=== PATIENT | female | born 1940 | race Caucasian/White ===

== ENCOUNTER → 2016-06-18 | Outpatient (REF) | payer OTHER ==
[2016-06-18 15:03] LABS: MEAN CORPUSCULAR HEMOGLOBIN 29.9 pg (27.0-33.0); MEAN CORPUSCULAR HGB CONC 32.2 g/dl (32.0-36.5); MEAN CORPUSCULAR VOLUME 92.9 fl (80.0-96.0); RED CELL DISTRIBUTION WIDTH 13.4 % (11.5-14.5); WHITE BLOOD COUNT 7.4 K/mm3 (4.0-10.0)
[2016-06-18 15:27] LABS: ALBUMIN 3.5 GM/DL (3.2-5.2); ALBUMIN/GLOBULIN RATIO 1.06 (1.00-1.93); ALKALINE PHOSPHATASE 140 U/L (45-117); ALT/SGPT 29 U/L (12-78); ANION GAP 8 MEQ/L (8-16); AST/SGOT 21 U/L (15-37); BILIRUBIN,TOTAL 0.8 MG/DL (0.2-1.0); BLOOD UREA NITROGEN 18 MG/DL (7-18); CALCIUM LEVEL 10.1 MG/DL (8.8-10.2); CARBON DIOXIDE LEVEL 32 MEQ/L (21-32); CHLORIDE LEVEL 101 MEQ/L (98-107); CHOLESTEROL LEVEL 149 MG/DL (<200); GLOMERULAR FILTRATION RATE > 60.0 (>39); GLUCOSE, FASTING 96 MG/DL (83-110); POTASSIUM SERUM 3.7 MEQ/L (3.5-5.1); SODIUM LEVEL 141 MEQ/L (136-145); TOTAL PROTEIN 6.8 GM/DL (6.4-8.2); TRIGLYCERIDES LEVEL 95 MG/DL (<150)
== END ==
LOC: M LABDRAW1 13:07
PROVIDERS: ATTEND Nurse Practitioner Family
DX: I10 Essential (primary) hypertension (principal); E55.9 Vitamin D deficiency, unspecified; E78.00 Pure hypercholesterolemia, unspecified

== ENCOUNTER → 2016-10-03 | Outpatient (REF) | payer OTHER ==
[2016-10-03 15:29] LABS: MEAN CORPUSCULAR HEMOGLOBIN 30.7 pg (27.0-33.0); MEAN CORPUSCULAR HGB CONC 33.6 g/dl (32.0-36.5); MEAN CORPUSCULAR VOLUME 91.4 fl (80.0-96.0); RED CELL DISTRIBUTION WIDTH 14.5 % (11.5-14.5); WHITE BLOOD COUNT 6.1 K/mm3 (4.0-10.0)
[2016-10-03 16:54] LABS: ALBUMIN 3.9 GM/DL (3.2-5.2); ALBUMIN/GLOBULIN RATIO 1.39 (1.00-1.93); ALKALINE PHOSPHATASE 105 U/L (45-117); ALT/SGPT 26 U/L (12-78); ANION GAP 8 MEQ/L (8-16); AST/SGOT 21 U/L (15-37); BILIRUBIN,TOTAL 0.9 MG/DL (0.2-1.0); BLOOD UREA NITROGEN 16 MG/DL (7-18); CALCIUM LEVEL 10.2 MG/DL (8.8-10.2); CARBON DIOXIDE LEVEL 30 MEQ/L (21-32); CHLORIDE LEVEL 103 MEQ/L (98-107); CHOLESTEROL LEVEL 163 MG/DL (<200); GLOMERULAR FILTRATION RATE > 60.0 (>39); GLUCOSE, FASTING 87 MG/DL (83-110); POTASSIUM SERUM 3.8 MEQ/L (3.5-5.1); SODIUM LEVEL 141 MEQ/L (136-145); TOTAL PROTEIN 6.7 GM/DL (6.4-8.2); TRIGLYCERIDES LEVEL 93 MG/DL (<150)
== END ==
LOC: M LABDRAW1 14:52
PROVIDERS: ATTEND Nurse Practitioner Family
DX: E55.9 Vitamin D deficiency, unspecified (principal); I10 Essential (primary) hypertension; E78.00 Pure hypercholesterolemia, unspecified

== ENCOUNTER → 2017-01-10 | Outpatient (REF) | payer OTHER ==
[2017-01-10 18:48] LABS: ALBUMIN 3.8 GM/DL (3.2-5.2); ALBUMIN/GLOBULIN RATIO 1.41 (1.00-1.93); ALKALINE PHOSPHATASE 111 U/L (45-117); ALT/SGPT 30 U/L (12-78); ANION GAP 7 MEQ/L (8-16); AST/SGOT 24 U/L (15-37); BLOOD UREA NITROGEN 20 MG/DL (7-18); CALCIUM LEVEL 10.2 MG/DL (8.8-10.2); CARBON DIOXIDE LEVEL 31 MEQ/L (21-32); CHLORIDE LEVEL 104 MEQ/L (98-107); CHOLESTEROL LEVEL 162 MG/DL (<200); CREATININE FOR GFR 0.81 MG/DL (0.55-1.02); GLOMERULAR FILTRATION RATE > 60.0 (>39); GLUCOSE, FASTING 86 MG/DL (83-110); SODIUM LEVEL 142 MEQ/L (136-145); TOTAL PROTEIN 6.5 GM/DL (6.4-8.2); TRIGLYCERIDES LEVEL 71 MG/DL (<150)
[2017-01-10 19:07] LABS: MEAN CORPUSCULAR HEMOGLOBIN 31.1 pg (27.0-33.0); MEAN CORPUSCULAR HGB CONC 33.6 g/dl (32.0-36.5); MEAN CORPUSCULAR VOLUME 92.5 fl (80.0-96.0); WHITE BLOOD COUNT 4.4 K/mm3 (4.0-10.0)
== END ==
LOC: M LABDRAW1 18:04
PROVIDERS: ATTEND Nurse Practitioner Family
DX: E78.00 Pure hypercholesterolemia, unspecified (principal); I10 Essential (primary) hypertension; E55.9 Vitamin D deficiency, unspecified

== ENCOUNTER → 2017-05-21 | Outpatient (CLI) | payer OTHER | LOC: M SMT 12:05 | DX: J43.1 Panlobular emphysema (principal) | CPT/HCPCS: 71046 ==

== ENCOUNTER → 2017-06-23 | Outpatient (REF) | payer OTHER ==
[2017-06-23 16:05] LABS: HEMATOCRIT 52.7 % (36.0-47.0); HEMOGLOBIN 16.9 g/dl (12.0-16.0); MEAN CORPUSCULAR HEMOGLOBIN 29.4 pg (27.0-33.0); MEAN CORPUSCULAR HGB CONC 32.1 g/dl (32.0-36.5); MEAN CORPUSCULAR VOLUME 91.7 fl (80.0-96.0); PLATELET COUNT, AUTOMATED 280 10^3/uL (150-450); RED BLOOD COUNT 5.75 10^6/uL (4.00-5.40); RED CELL DISTRIBUTION WIDTH 13.7 % (11.5-14.5); WHITE BLOOD COUNT 9.9 10^3/uL (4.0-10.0)
[2017-06-23 16:21] LABS: ALBUMIN/GLOBULIN RATIO 1.38 (1.00-1.93); ALKALINE PHOSPHATASE 116 U/L (45-117); ALT/SGPT 33 U/L (12-78); ANION GAP 8 MEQ/L (8-16); AST/SGOT 23 U/L (7-37); BLOOD UREA NITROGEN 26 MG/DL (7-18); CALCIUM LEVEL 10.2 MG/DL (8.8-10.2); CARBON DIOXIDE LEVEL 31 MEQ/L (21-32); CHLORIDE LEVEL 101 MEQ/L (98-107); CHOLESTEROL LEVEL 159 MG/DL (<200); CHOLESTEROL RISK RATIO 2.741 (<5); CPK CREATINE PHOSPHOKINASE 57 U/L (26-192); CREATININE FOR GFR 0.96 MG/DL (0.55-1.30); GLOMERULAR FILTRATION RATE > 60.0 (>39); GLUCOSE, FASTING 111 MG/DL (70-100); HDL CHOLESTEROL 58 MG/DL (>40); LDL CHOLESTEROL 81.8 MG/DL (<100); NON-HDL-C 101 MG/DL; POTASSIUM SERUM 3.6 MEQ/L (3.5-5.1); SODIUM LEVEL 140 MEQ/L (136-145); TOTAL PROTEIN 6.9 GM/DL (6.4-8.2); TRIGLYCERIDES LEVEL 96 MG/DL (<150)
== END ==
LOC: M LABDRAW1 15:35
DX: I10 Essential (primary) hypertension (principal); E55.9 Vitamin D deficiency, unspecified; E78.5 Hyperlipidemia, unspecified
CPT/HCPCS: 82550

== ENCOUNTER 2017-07-15 16:54 | Inpatient (IN) | payer OTHER ==
[2017-07-15] MEDS: methylPREDNISolone INJ 125 MG/2 ML VIAL (J2930) IV (17:45)
[2017-07-15] MEDS: FUROSEMIDE 40 MG/4 ML VIAL (J1940) IV (17:45)
[2017-07-15] MEDS: IPRATROPIUM 0.5MG/ALBUTEROL 2.5MG INH SOL UD 3ML (DUONEB)(J7620) NEB ×4 (17:45→18:17)
[2017-07-15] MEDS: ASPIRIN 81 MG CHEW TABLET PO (17:45)
[2017-07-15 18:00] LABS: BASO # 0.1 10^3/uL (0.0-0.2); BASO % 0.7 % (0.0-1.0); EOS # 0.1 10^3/uL (0.0-0.50); EOS % 0.7 % (0.0-3.0); HEMOGLOBIN 16.9 g/dl (12.0-16.0); IMMATURE GRANULOCYTE % 0.9 % (0-3.0); LYMPH % 9.8 % (24.0-44.0); MEAN CORPUSCULAR HEMOGLOBIN 29.5 pg (27.0-33.0); MEAN CORPUSCULAR HGB CONC 32.5 g/dl (32.0-36.5); MEAN CORPUSCULAR VOLUME 90.8 fl (80.0-96.0); MONO # 0.8 10^3/uL (0.0-0.8); MONO % 7.2 % (0.0-5.0); NEUTROPHILS # 8.5 10^3/uL (1.8-7.7); NEUTROPHILS % 80.7 % (36.0-66.0); PLATELET COUNT, AUTOMATED 247 10^3/uL (150-450); RED BLOOD COUNT 5.73 10^6/uL (4.00-5.40); RED CELL DISTRIBUTION WIDTH 14.6 % (11.5-14.5); WHITE BLOOD COUNT 10.5 10^3/uL (4.0-10.0)
[2017-07-15 18:07] LABS: ABG BASE EXCESS 2.1 (-2.0-2.0); ABG HCO3 26.3 MEQ/L (22.0-26.0); ABG PARTIAL PRESSURE CO2 39.4 mmHg (35.0-45.0); ABG PARTIAL PRESSURE O2 51.2 mmHg (75.0-100.0); ABG STANDARD HCO3 26.1 MEQ/L (22.0-26.0); ABG TOTAL CO2 27.5 MEQ/L (23.0-31.0); ABG pH (ARTERIAL) 7.442 UNITS (7.350-7.450); ALBUMIN 3.8 GM/DL (3.2-5.2); ALBUMIN/GLOBULIN RATIO 1.15 (1.00-1.93); ALKALINE PHOSPHATASE 121 U/L (45-117); ALT/SGPT 34 U/L (12-78); ANION GAP 9 MEQ/L (8-16); AST/SGOT 34 U/L (7-37); BILIRUBIN,DIRECT 0.3 MG/DL (0.0-0.2); BILIRUBIN,TOTAL 1.5 MG/DL (0.2-1.0); BLOOD UREA NITROGEN 19 MG/DL (7-18); CARBON DIOXIDE LEVEL 30 MEQ/L (21-32); CHLORIDE LEVEL 103 MEQ/L (98-107); CK-MB VALUE MASS 9.2 NG/ML (0.0-3.6); CPK CREATINE PHOSPHOKINASE 183 U/L (26-192); GLOMERULAR FILTRATION RATE > 60.0 (>39); GLUCOSE, FASTING 113 MG/DL (70-100); MB/CK RELATIVE INDEX 5.02 (< OR =4); NT-PRO BNP 3727 PG/ML (<450); POTASSIUM SERUM 3.2 MEQ/L (3.5-5.1); SODIUM LEVEL 142 MEQ/L (136-145); TOTAL PROTEIN 7.1 GM/DL (6.4-8.2); TROPONIN I 0.02 NG/ML (< 0.10)
[2017-07-15 19:14] LABS: INFLUENZA A AMPLIFICATION NEGATIVE (NEGATIVE); INFLUENZA B AMPLIFICATION NEGATIVE (NEGATIVE)
[2017-07-15] MEDS ORDERED: ACETAMINOPHEN TAB 650MG DOSE (2X325MG) PO (20:30)
[2017-07-15] MEDS ORDERED: ALBUTEROL SULFATE 2.5 MG/0.5 ML INH NEB SOLN NEB (20:45)
[2017-07-15] MEDS ORDERED: ALBUTEROL SULFATE 2.5 MG/0.5 ML INH NEB SOLN INH (20:45)
[2017-07-15] MEDS: VALSARTAN 80 MG TAB (DIOVAN) PO (22:03)
[2017-07-15] MEDS: POTASSIUM CHLORIDE 10 MEQ SR TABLET PO (22:04)
[2017-07-15] MEDS: ATORVASTATIN 20 MG TAB PO (22:04)
[2017-07-15] MEDS: HEPARIN SOD (PORCINE) 5000 UNITS/ML VIAL SC (22:04)
[2017-07-15 22:49] LABS: CK-MB VALUE MASS 12.8 NG/ML (0.0-3.6); CPK CREATINE PHOSPHOKINASE 227 U/L (26-192); MB/CK RELATIVE INDEX 5.63 (< OR =4); TROPONIN I 0.03 NG/ML (< 0.10)
[2017-07-16] MEDS: ALPRAZolam 0.25 MG TAB PO (00:15)
[2017-07-16] MEDS: FUROSEMIDE 40 MG/4 ML VIAL (J1940) IV ×4 (00:16→18:30)
[2017-07-16] MEDS: HEPARIN SOD (PORCINE) 5000 UNITS/ML VIAL SC ×3 (06:35→21:17)
[2017-07-16 07:37] LABS: HEMATOCRIT 46.3 % (36.0-47.0); HEMOGLOBIN 15.2 g/dl (12.0-16.0); MEAN CORPUSCULAR HEMOGLOBIN 29.6 pg (27.0-33.0); MEAN CORPUSCULAR HGB CONC 32.8 g/dl (32.0-36.5); MEAN CORPUSCULAR VOLUME 90.3 fl (80.0-96.0); PLATELET COUNT, AUTOMATED 199 10^3/uL (150-450); RED BLOOD COUNT 5.13 10^6/uL (4.00-5.40); RED CELL DISTRIBUTION WIDTH 14.5 % (11.5-14.5); WHITE BLOOD COUNT 4.8 10^3/uL (4.0-10.0)
[2017-07-16 07:53] LABS: ANION GAP 5 MEQ/L (8-16); BLOOD UREA NITROGEN 18 MG/DL (7-18); CALCIUM LEVEL 9.8 MG/DL (8.8-10.2); CARBON DIOXIDE LEVEL 36 MEQ/L (21-32); CHLORIDE LEVEL 102 MEQ/L (98-107); CREATININE FOR GFR 0.99 MG/DL (0.55-1.30); GLOMERULAR FILTRATION RATE 58.1 (>39); GLUCOSE, FASTING 136 MG/DL (70-100); MAGNESIUM LEVEL 1.9 MG/DL (1.8-2.4); SODIUM LEVEL 143 MEQ/L (136-145)
[2017-07-16] MEDS: CitaloPRAM (CeleXA) 20 MG TAB PO (09:15)
[2017-07-16] MEDS: POTASSIUM CHLORIDE 10 MEQ SR TABLET PO (09:15)
[2017-07-16] MEDS: INDAPAMIDE 1.25MG TABLET PO (09:15)
[2017-07-16 14:50] LABS: ABG BASE EXCESS 6.5 (-2.0-2.0); ABG HCO3 30.3 MEQ/L (22.0-26.0); ABG O2 SATURATION 93.5 % (95.0-99.0); ABG PARTIAL PRESSURE CO2 40.4 mmHg (35.0-45.0); ABG PARTIAL PRESSURE O2 65.4 mmHg (75.0-100.0); ABG STANDARD HCO3 30.2 MEQ/L (22.0-26.0); ABG TOTAL CO2 31.5 MEQ/L (23.0-31.0); ABG pH (ARTERIAL) 7.493 UNITS (7.350-7.450)
[2017-07-16] MEDS ORDERED: SLF 3 ML SYR IV (17:00)
[2017-07-16] MEDS: VALSARTAN 80 MG TAB (DIOVAN) PO (20:25)
[2017-07-16] MEDS: ATORVASTATIN 20 MG TAB PO (21:16)
[2017-07-16] MEDS: SLF 3 ML SYR IV (21:17)
[2017-07-17 05:48] LABS: HEMOGLOBIN 14.4 g/dl (12.0-16.0); MEAN CORPUSCULAR HEMOGLOBIN 29.1 pg (27.0-33.0); MEAN CORPUSCULAR VOLUME 90.9 fl (80.0-96.0); PLATELET COUNT, AUTOMATED 202 10^3/uL (150-450); RED BLOOD COUNT 4.95 10^6/uL (4.00-5.40); RED CELL DISTRIBUTION WIDTH 14.8 % (11.5-14.5); WHITE BLOOD COUNT 8.6 10^3/uL (4.0-10.0)
[2017-07-17] MEDS: HEPARIN SOD (PORCINE) 5000 UNITS/ML VIAL SC ×3 (06:02→21:00)
[2017-07-17] MEDS: FUROSEMIDE 40 MG/4 ML VIAL (J1940) IV ×3 (06:02→11:28)
[2017-07-17] MEDS: SLF 3 ML SYR IV ×3 (06:02→21:00)
[2017-07-17 06:05] LABS: ANION GAP 4 MEQ/L (8-16); BLOOD UREA NITROGEN 28 MG/DL (7-18); CALCIUM LEVEL 9.7 MG/DL (8.8-10.2); CARBON DIOXIDE LEVEL 40 MEQ/L (21-32); CHLORIDE LEVEL 100 MEQ/L (98-107); CREATININE FOR GFR 1.16 MG/DL (0.55-1.30); GLOMERULAR FILTRATION RATE 48.4 (>39); GLUCOSE, FASTING 86 MG/DL (70-100); POTASSIUM SERUM 3.3 MEQ/L (3.5-5.1); SODIUM LEVEL 144 MEQ/L (136-145)
[2017-07-17] MEDS: POTASSIUM CHLORIDE 10 MEQ SR TABLET PO (06:51)
[2017-07-17] MEDS: CitaloPRAM (CeleXA) 20 MG TAB PO (08:54)
[2017-07-17] MEDS: INDAPAMIDE 1.25MG TABLET PO (08:54)
[2017-07-17] MEDS: ALPRAZolam 0.25 MG TAB PO (11:28)
[2017-07-17] MEDS: VALSARTAN 80 MG TAB (DIOVAN) PO (20:39)
[2017-07-17] MEDS: [UNRECOGNIZED DRUG - OTHER] PO (20:43)
[2017-07-17] MEDS: ATORVASTATIN 20 MG TAB PO (20:43)
[2017-07-18] MEDS: FUROSEMIDE 40 MG/4 ML VIAL (J1940) IV (01:37)
[2017-07-18 05:01] LABS: HEMATOCRIT 49.8 % (36.0-47.0); HEMOGLOBIN 16.3 g/dl (12.0-16.0); MEAN CORPUSCULAR HEMOGLOBIN 29.7 pg (27.0-33.0); MEAN CORPUSCULAR HGB CONC 32.7 g/dl (32.0-36.5); MEAN CORPUSCULAR VOLUME 90.7 fl (80.0-96.0); PLATELET COUNT, AUTOMATED 213 10^3/uL (150-450); RED BLOOD COUNT 5.49 10^6/uL (4.00-5.40); RED CELL DISTRIBUTION WIDTH 14.6 % (11.5-14.5); WHITE BLOOD COUNT 8.4 10^3/uL (4.0-10.0)
[2017-07-18 05:18] LABS: ANION GAP 5 MEQ/L (8-16); BLOOD UREA NITROGEN 30 MG/DL (7-18); CALCIUM LEVEL 10.2 MG/DL (8.8-10.2); CARBON DIOXIDE LEVEL 39 MEQ/L (21-32); CHLORIDE LEVEL 98 MEQ/L (98-107); CREATININE FOR GFR 1.12 MG/DL (0.55-1.30); GLOMERULAR FILTRATION RATE 50.4 (>39); GLUCOSE, FASTING 110 MG/DL (70-100); MAGNESIUM LEVEL 2.1 MG/DL (1.8-2.4); POTASSIUM SERUM 3.1 MEQ/L (3.5-5.1); SODIUM LEVEL 142 MEQ/L (136-145)
[2017-07-18] MEDS: HEPARIN SOD (PORCINE) 5000 UNITS/ML VIAL SC ×3 (05:54→21:42)
[2017-07-18] MEDS: SLF 3 ML SYR IV ×3 (05:55→21:43)
[2017-07-18] MEDS: POTASSIUM CHLORIDE 10 MEQ SR TABLET PO ×2 (06:51→08:32)
[2017-07-18] MEDS: KCL 10MEQ/100ML SWI *ED/ICU* 10 MEQ in APPROPRIATE DILUENT 1 EA IV (06:53)
[2017-07-18] MEDS: INDAPAMIDE 1.25MG TABLET PO (08:31)
[2017-07-18] MEDS: CitaloPRAM (CeleXA) 20 MG TAB PO (08:31)
[2017-07-18] MEDS: [UNRECOGNIZED DRUG - OTHER] PO ×2 (08:32→21:43)
[2017-07-18] MEDS: FUROSEMIDE 40 MG TAB PO ×2 (09:07→17:17)
[2017-07-18 11:22] LABS: ANION GAP 5 MEQ/L (8-16); BLOOD UREA NITROGEN 31 MG/DL (7-18); CALCIUM LEVEL 9.9 MG/DL (8.8-10.2); CARBON DIOXIDE LEVEL 40 MEQ/L (21-32); CHLORIDE LEVEL 97 MEQ/L (98-107); CREATININE FOR GFR 1.24 MG/DL (0.55-1.30); GLOMERULAR FILTRATION RATE 44.8 (>39); GLUCOSE, FASTING 191 MG/DL (70-100); POTASSIUM SERUM 3.9 MEQ/L (3.5-5.1); SODIUM LEVEL 142 MEQ/L (136-145)
[2017-07-18] MEDS: VALSARTAN 80 MG TAB (DIOVAN) PO (21:00)
[2017-07-18] MEDS: ATORVASTATIN 20 MG TAB PO (21:42)
[2017-07-19 05:49] LABS: HEMATOCRIT 51.6 % (36.0-47.0); HEMOGLOBIN 16.4 g/dl (12.0-16.0); MEAN CORPUSCULAR HEMOGLOBIN 28.9 pg (27.0-33.0); MEAN CORPUSCULAR HGB CONC 31.8 g/dl (32.0-36.5); PLATELET COUNT, AUTOMATED 220 10^3/uL (150-450); RED BLOOD COUNT 5.67 10^6/uL (4.00-5.40); RED CELL DISTRIBUTION WIDTH 14.8 % (11.5-14.5); WHITE BLOOD COUNT 8.1 10^3/uL (4.0-10.0)
[2017-07-19 06:04] LABS: ANION GAP 4 MEQ/L (8-16); BLOOD UREA NITROGEN 34 MG/DL (7-18); CALCIUM LEVEL 9.9 MG/DL (8.8-10.2); CARBON DIOXIDE LEVEL 41 MEQ/L (21-32); CHLORIDE LEVEL 100 MEQ/L (98-107); CREATININE FOR GFR 1.19 MG/DL (0.55-1.30); GLOMERULAR FILTRATION RATE 46.9 (>39); GLUCOSE, FASTING 109 MG/DL (70-100); MAGNESIUM LEVEL 2.2 MG/DL (1.8-2.4); POTASSIUM SERUM 3.9 MEQ/L (3.5-5.1); SODIUM LEVEL 145 MEQ/L (136-145)
[2017-07-19] MEDS: SLF 3 ML SYR IV ×3 (06:25→21:06)
[2017-07-19] MEDS: HEPARIN SOD (PORCINE) 5000 UNITS/ML VIAL SC ×3 (06:25→21:06)
[2017-07-19] MEDS: CitaloPRAM (CeleXA) 20 MG TAB PO (09:25)
[2017-07-19] MEDS: INDAPAMIDE 1.25MG TABLET PO (09:25)
[2017-07-19] MEDS: [UNRECOGNIZED DRUG - OTHER] PO ×2 (09:26→21:06)
[2017-07-19] MEDS: FUROSEMIDE 40 MG TAB PO ×2 (09:26→17:30)
[2017-07-19] MEDS: VALSARTAN 80 MG TAB (DIOVAN) PO (21:02)
[2017-07-19] MEDS: ATORVASTATIN 20 MG TAB PO (21:06)
[2017-07-20] MEDS: HEPARIN SOD (PORCINE) 5000 UNITS/ML VIAL SC ×3 (06:08→20:43)
[2017-07-20] MEDS: SLF 3 ML SYR IV ×3 (06:08→20:43)
[2017-07-20 06:12] LABS: HEMATOCRIT 50.9 % (36.0-47.0); HEMOGLOBIN 16.5 g/dl (12.0-16.0); MEAN CORPUSCULAR HEMOGLOBIN 29.5 pg (27.0-33.0); MEAN CORPUSCULAR HGB CONC 32.4 g/dl (32.0-36.5); MEAN CORPUSCULAR VOLUME 90.9 fl (80.0-96.0); PLATELET COUNT, AUTOMATED 202 10^3/uL (150-450); RED CELL DISTRIBUTION WIDTH 14.7 % (11.5-14.5); WHITE BLOOD COUNT 6.3 10^3/uL (4.0-10.0)
[2017-07-20 06:33] LABS: ANION GAP 4 MEQ/L (8-16); BLOOD UREA NITROGEN 36 MG/DL (7-18); CARBON DIOXIDE LEVEL 41 MEQ/L (21-32); CHLORIDE LEVEL 97 MEQ/L (98-107); CREATININE FOR GFR 1.12 MG/DL (0.55-1.30); GLOMERULAR FILTRATION RATE 50.4 (>39); GLUCOSE, FASTING 110 MG/DL (70-100); MAGNESIUM LEVEL 2.3 MG/DL (1.8-2.4); POTASSIUM SERUM 3.4 MEQ/L (3.5-5.1); SODIUM LEVEL 142 MEQ/L (136-145)
[2017-07-20] MEDS: CitaloPRAM (CeleXA) 20 MG TAB PO (08:59)
[2017-07-20] MEDS: FUROSEMIDE 40 MG TAB PO (08:59)
[2017-07-20] MEDS: POTASSIUM CHLORIDE 10 MEQ SR TABLET PO (09:00)
[2017-07-20] MEDS: INDAPAMIDE 1.25MG TABLET PO (09:00)
[2017-07-20] MEDS: [UNRECOGNIZED DRUG - OTHER] PO ×2 (09:01→20:42)
[2017-07-20] MEDS: VALSARTAN 80 MG TAB (DIOVAN) PO (20:42)
[2017-07-20] MEDS: ATORVASTATIN 20 MG TAB PO (20:43)
[2017-07-21] MEDS: HEPARIN SOD (PORCINE) 5000 UNITS/ML VIAL SC ×2 (05:08→14:00)
[2017-07-21] MEDS: SLF 3 ML SYR IV ×2 (05:09→14:00)
[2017-07-21 05:20] LABS: HEMATOCRIT 49.2 % (36.0-47.0); MEAN CORPUSCULAR HEMOGLOBIN 29.6 pg (27.0-33.0); MEAN CORPUSCULAR HGB CONC 32.5 g/dl (32.0-36.5); MEAN CORPUSCULAR VOLUME 91.1 fl (80.0-96.0); PLATELET COUNT, AUTOMATED 202 10^3/uL (150-450); RED CELL DISTRIBUTION WIDTH 14.7 % (11.5-14.5); WHITE BLOOD COUNT 6.6 10^3/uL (4.0-10.0)
[2017-07-21 05:36] LABS: ANION GAP 2 MEQ/L (8-16); BLOOD UREA NITROGEN 33 MG/DL (7-18); CALCIUM LEVEL 9.7 MG/DL (8.8-10.2); CARBON DIOXIDE LEVEL 41 MEQ/L (21-32); CHLORIDE LEVEL 98 MEQ/L (98-107); CREATININE FOR GFR 1.15 MG/DL (0.55-1.30); GLOMERULAR FILTRATION RATE 48.8 (>39); GLUCOSE, FASTING 100 MG/DL (70-100); MAGNESIUM LEVEL 2.2 MG/DL (1.8-2.4); POTASSIUM SERUM 3.5 MEQ/L (3.5-5.1); SODIUM LEVEL 141 MEQ/L (136-145)
[2017-07-21] MEDS: INDAPAMIDE 1.25MG TABLET PO (08:12)
[2017-07-21] MEDS: CitaloPRAM (CeleXA) 20 MG TAB PO (08:12)
[2017-07-21] MEDS: [UNRECOGNIZED DRUG - OTHER] PO (08:12)
[2017-07-21] MEDS: POTASSIUM CHLORIDE 10 MEQ SR TABLET PO (08:13)
[2017-07-21] MEDS: FUROSEMIDE 40 MG TAB PO (08:14)
== END 2017-07-21 15:30 | disposition home or self-care (01) | DRG 291 ==
LOC: M PCU 07-16 16:00 → M ED 16:54 → M ED INP 20:26
DX: I50.33 Acute on chronic diastolic (congestive) heart failure (principal); J96.21 Acute and chronic respiratory failure with hypoxia; C96.6 Unifocal Langerhans-cell histiocytosis; I27.20 Pulmonary hypertension, unspecified; J43.9 Emphysema, unspecified; E87.6 Hypokalemia; J84.10 Pulmonary fibrosis, unspecified; F41.0 Panic disorder [episodic paroxysmal anxiety]; E78.00 Pure hypercholesterolemia, unspecified; H35.30 Unspecified macular degeneration; Z87.891 Personal history of nicotine dependence; Z99.81 Dependence on supplemental oxygen

== ENCOUNTER → 2017-09-22 | Outpatient (REF) | payer OTHER ==
[2017-09-22 14:07] LABS: HEMOGLOBIN 16.4 g/dl (12.0-15.5); MEAN CORPUSCULAR HEMOGLOBIN 30.1 pg (27.0-33.0); MEAN CORPUSCULAR HGB CONC 33.5 g/dl (32.0-36.5); MEAN CORPUSCULAR VOLUME 90.1 fl (80.0-96.0); PLATELET COUNT, AUTOMATED 215 10^3/uL (150-450); RED BLOOD COUNT 5.44 10^6/uL (4.00-5.40); RED CELL DISTRIBUTION WIDTH 14.5 % (11.5-14.5); WHITE BLOOD COUNT 6.8 10^3/uL (4.0-10.0)
[2017-09-22 14:23] LABS: TOTAL 25(OH) VITAMIN D 35.7 NG/ML (30.0-100.0)
[2017-09-22 14:33] LABS: ALBUMIN/GLOBULIN RATIO 1.43 (1.00-1.93); ALKALINE PHOSPHATASE 104 U/L (45-117); ALT/SGPT 27 U/L (12-78); ANION GAP 8 MEQ/L (8-16); AST/SGOT 30 U/L (7-37); BILIRUBIN,TOTAL 1.5 MG/DL (0.2-1.0); BLOOD UREA NITROGEN 20 MG/DL (7-18); CALCIUM LEVEL 10.2 MG/DL (8.8-10.2); CARBON DIOXIDE LEVEL 33 MEQ/L (21-32); CHLORIDE LEVEL 102 MEQ/L (98-107); CHOLESTEROL LEVEL 148 MG/DL (<200); CHOLESTEROL RISK RATIO 3.148 (<5); CPK CREATINE PHOSPHOKINASE 91 U/L (26-192); CREATININE FOR GFR 1.07 MG/DL (0.55-1.30); GLOMERULAR FILTRATION RATE 53.1 (>39); GLUCOSE, FASTING 115 MG/DL (70-100); HDL CHOLESTEROL 47 MG/DL (>40); LDL CHOLESTEROL 78.8 MG/DL (<100); NON-HDL-C 101 MG/DL; POTASSIUM SERUM 3.3 MEQ/L (3.5-5.1); SODIUM LEVEL 143 MEQ/L (136-145); TOTAL PROTEIN 6.8 GM/DL (6.4-8.2); TRIGLYCERIDES LEVEL 111 MG/DL (<150)
== END ==
LOC: M LABDRAW1 11:45
DX: J44.9 Chronic obstructive pulmonary disease, unspecified (principal); E55.9 Vitamin D deficiency, unspecified; I10 Essential (primary) hypertension
CPT/HCPCS: 82550

== ENCOUNTER 2017-10-08 12:27 | Inpatient (IN) | payer OTHER ==
[2017-10-08] MEDS: NS 1,000 ML IV (12:59)
[2017-10-08] MEDS: ASPIRIN 81 MG CHEW TABLET PO (13:12)
[2017-10-08] MEDS: methylPREDNISolone INJ 125 MG/2 ML VIAL (J2930) IV (13:13)
[2017-10-08] MEDS: FUROSEMIDE 40 MG/4 ML VIAL (J1940) IV (13:13)
[2017-10-08 13:34] LABS: BASO # 0.1 10^3/uL (0.0-0.2); BASO % 0.7 % (0.0-1.0); EOS % 0.5 % (0.0-3.0); HEMATOCRIT 52.7 % (36.0-47.0); HEMOGLOBIN 17.3 g/dl (12.0-15.5); IMMATURE GRANULOCYTE % 0.4 % (0-3.0); LYMPH # 1.4 10^3/uL (1.5-4.5); LYMPH % 16.6 % (24.0-44.0); MEAN CORPUSCULAR HEMOGLOBIN 30.2 pg (27.0-33.0); MEAN CORPUSCULAR HGB CONC 32.8 g/dl (32.0-36.5); MEAN CORPUSCULAR VOLUME 92.1 fl (80.0-96.0); MONO # 0.6 10^3/uL (0.0-0.8); MONO % 6.8 % (0.0-5.0); NEUTROPHILS # 6.3 10^3/uL (1.8-7.7); PLATELET COUNT, AUTOMATED 225 10^3/uL (150-450); RED BLOOD COUNT 5.72 10^6/uL (4.00-5.40); RED CELL DISTRIBUTION WIDTH 15.3 % (11.5-14.5); WHITE BLOOD COUNT 8.4 10^3/uL (4.0-10.0)
[2017-10-08 13:44] LABS: ALBUMIN/GLOBULIN RATIO 1.05 (1.00-1.93); ALKALINE PHOSPHATASE 110 U/L (45-117); ALT/SGPT 29 U/L (12-78); ANION GAP 8 MEQ/L (8-16); AST/SGOT 26 U/L (7-37); BILIRUBIN,DIRECT 0.3 MG/DL (0.0-0.2); BILIRUBIN,TOTAL 1.4 MG/DL (0.2-1.0); BLOOD UREA NITROGEN 25 MG/DL (7-18); CALCIUM LEVEL 10.6 MG/DL (8.8-10.2); CARBON DIOXIDE LEVEL 29 MEQ/L (21-32); CHLORIDE LEVEL 103 MEQ/L (98-107); CK-MB VALUE MASS 6.9 NG/ML (<3.6); CPK CREATINE PHOSPHOKINASE 127 U/L (26-192); GLOMERULAR FILTRATION RATE 42.3 (>39); GLUCOSE, FASTING 122 MG/DL (70-100); MB/CK RELATIVE INDEX 5.43 (< OR =4); POTASSIUM SERUM 4.1 MEQ/L (3.5-5.1); SODIUM LEVEL 140 MEQ/L (136-145); TOTAL PROTEIN 7.8 GM/DL (6.4-8.2); TROPONIN I 0.17 NG/ML (< 0.10)
[2017-10-08 13:47] LABS: LACTIC ACID SEPSIS PROTOCOL 4.1 MMOL/L (0.4-2.0)
[2017-10-08] MEDS: IPRATROPIUM 0.5MG/ALBUTEROL 2.5MG INH SOL UD 3ML (DUONEB)(J7620) NEB ×3 (14:35→19:19)
[2017-10-08 14:54] LABS: ABG BASE EXCESS 2.9 (-2.0-2.0); ABG HCO3 26.1 MEQ/L (22.0-26.0); ABG O2 SATURATION 85.5 % (95.0-99.0); ABG PARTIAL PRESSURE CO2 35.8 mmHg (35.0-45.0); ABG STANDARD HCO3 26.7 MEQ/L (22.0-26.0); ABG TOTAL CO2 27.2 MEQ/L (23.0-31.0)
[2017-10-08 14:58] LABS: ABG PARTIAL PRESSURE O2 48.7 mmHg (75.0-100.0)
[2017-10-08 17:27] LABS: TROPONIN I 0.15 NG/ML (< 0.10)
[2017-10-08] MEDS ORDERED: VALSARTAN 80 MG TAB (DIOVAN) PO (17:30)
[2017-10-08] MEDS ORDERED: IPRATROPIUM 0.5MG/ALBUTEROL 2.5MG INH SOL UD 3ML (DUONEB)(J7620) NEB (17:30)
[2017-10-08] MEDS ORDERED: ACETAMINOPHEN TAB 650MG DOSE (2X325MG) PO (17:30)
[2017-10-08] MEDS ORDERED: ONDANSETRON 4MG/2ML VIAL (J2405) IV (17:30)
[2017-10-08] MEDS ORDERED: NON-FORMULARY COMPOUNDED MEDICATION PO (21:00)
[2017-10-08] MEDS: ATORVASTATIN 20 MG TAB PO (22:17)
[2017-10-08] MEDS: HEPARIN SOD (PORCINE) 5000 UNITS/ML VIAL SC (22:17)
[2017-10-09] MEDS: IPRATROPIUM 0.5MG/ALBUTEROL 2.5MG INH SOL UD 3ML (DUONEB)(J7620) NEB ×4 (00:16→23:17)
[2017-10-09] MEDS: methylPREDNISolone INJ 125 MG/2 ML VIAL (J2930) IV ×2 (01:45→13:23)
[2017-10-09] MEDS: HEPARIN SOD (PORCINE) 5000 UNITS/ML VIAL SC ×3 (06:31→21:31)
[2017-10-09 07:23] LABS: CK-MB VALUE MASS 7.3 NG/ML (<3.6); CPK CREATINE PHOSPHOKINASE 138 U/L (26-192); MB/CK RELATIVE INDEX 5.28 (< OR =4); TROPONIN I 0.14 NG/ML (< 0.10)
[2017-10-09 07:36] LABS: ANION GAP 8 MEQ/L (8-16); BLOOD UREA NITROGEN 26 MG/DL (7-18); CALCIUM LEVEL 9.6 MG/DL (8.8-10.2); CARBON DIOXIDE LEVEL 28 MEQ/L (21-32); CHLORIDE LEVEL 108 MEQ/L (98-107); CREATININE FOR GFR 1.06 MG/DL (0.55-1.30); GLOMERULAR FILTRATION RATE 53.5 (>39); GLUCOSE, FASTING 134 MG/DL (70-100); MAGNESIUM LEVEL 2.2 MG/DL (1.8-2.4); POTASSIUM SERUM 3.6 MEQ/L (3.5-5.1); SODIUM LEVEL 144 MEQ/L (136-145)
[2017-10-09 07:38] LABS: HEMATOCRIT 44.9 % (36.0-47.0); MEAN CORPUSCULAR HEMOGLOBIN 30.5 pg (27.0-33.0); MEAN CORPUSCULAR HGB CONC 33.4 g/dl (32.0-36.5); MEAN CORPUSCULAR VOLUME 91.4 fl (80.0-96.0); PLATELET COUNT, AUTOMATED 184 10^3/uL (150-450); RED BLOOD COUNT 4.91 10^6/uL (4.00-5.40); RED CELL DISTRIBUTION WIDTH 15.3 % (11.5-14.5); WHITE BLOOD COUNT 8.2 10^3/uL (4.0-10.0)
[2017-10-09] MEDS: TIOTROPIUM INHALER/CAPSULE (SPIRIVA) INH (08:00)
[2017-10-09] MEDS: POTASSIUM CHLORIDE 10 MEQ SR TABLET PO (08:19)
[2017-10-09] MEDS: FUROSEMIDE 40 MG TAB PO (08:19)
[2017-10-09] MEDS: ASPIRIN 81 MG ENTERIC TAB PO (08:19)
[2017-10-09] MEDS: CitaloPRAM (CeleXA) 20 MG TAB PO (08:19)
[2017-10-09] MEDS ORDERED: NON-FORMULARY COMPOUNDED MEDICATION INH (09:00)
[2017-10-09] MEDS: ADVAIR HFA 230/21MCG INHALER INH ×2 (09:00→23:17)
[2017-10-09] MEDS: INDAPAMIDE 1.25MG TABLET PO (09:34)
[2017-10-09] MEDS: OCUVITE 1 TAB PO ×2 (09:35→21:30)
[2017-10-09] MEDS: ATORVASTATIN 20 MG TAB PO (21:30)
[2017-10-09] MEDS: ALPRAZolam 0.25 MG TAB PO (21:30)
[2017-10-10] MEDS: methylPREDNISolone INJ 125 MG/2 ML VIAL (J2930) IV ×2 (00:58→12:50)
[2017-10-10] MEDS ORDERED: SLF 3 ML SYR IV (02:00)
[2017-10-10] MEDS: SLF 3 ML SYR IV ×3 (06:10→20:12)
[2017-10-10] MEDS: HEPARIN SOD (PORCINE) 5000 UNITS/ML VIAL SC ×3 (06:11→20:12)
[2017-10-10 06:28] LABS: HEMATOCRIT 43.4 % (36.0-47.0); HEMOGLOBIN 14.4 g/dl (12.0-15.5); MEAN CORPUSCULAR HEMOGLOBIN 30.4 pg (27.0-33.0); MEAN CORPUSCULAR HGB CONC 33.2 g/dl (32.0-36.5); MEAN CORPUSCULAR VOLUME 91.6 fl (80.0-96.0); PLATELET COUNT, AUTOMATED 186 10^3/uL (150-450); RED BLOOD COUNT 4.74 10^6/uL (4.00-5.40); RED CELL DISTRIBUTION WIDTH 15.2 % (11.5-14.5); WHITE BLOOD COUNT 11.4 10^3/uL (4.0-10.0)
[2017-10-10 06:45] LABS: ANION GAP 5 MEQ/L (8-16); BLOOD UREA NITROGEN 33 MG/DL (7-18); C REACTIVE PROTEIN QUANTITATIV < 0.30 MG/DL (0.00-0.30); CALCIUM LEVEL 9.8 MG/DL (8.8-10.2); CARBON DIOXIDE LEVEL 31 MEQ/L (21-32); CHLORIDE LEVEL 106 MEQ/L (98-107); GLOMERULAR FILTRATION RATE 42.3 (>39); GLUCOSE, FASTING 139 MG/DL (70-100); MAGNESIUM LEVEL 2.4 MG/DL (1.8-2.4); POTASSIUM SERUM 4.2 MEQ/L (3.5-5.1); SODIUM LEVEL 142 MEQ/L (136-145)
[2017-10-10] MEDS: IPRATROPIUM 0.5MG/ALBUTEROL 2.5MG INH SOL UD 3ML (DUONEB)(J7620) NEB ×2 (08:00→15:47)
[2017-10-10] MEDS: ADVAIR HFA 230/21MCG INHALER INH ×2 (08:03→20:17)
[2017-10-10] MEDS: TIOTROPIUM INHALER/CAPSULE (SPIRIVA) INH (08:03)
[2017-10-10] MEDS: FUROSEMIDE 40 MG TAB PO (09:00)
[2017-10-10] MEDS: OCUVITE 1 TAB PO ×2 (10:00→20:11)
[2017-10-10] MEDS: INDAPAMIDE 1.25MG TABLET PO (10:00)
[2017-10-10] MEDS: CitaloPRAM (CeleXA) 20 MG TAB PO (10:01)
[2017-10-10] MEDS: VALSARTAN 80 MG TAB (DIOVAN) PO (10:01)
[2017-10-10] MEDS: POTASSIUM CHLORIDE 10 MEQ SR TABLET PO (10:01)
[2017-10-10] MEDS: ASPIRIN 81 MG ENTERIC TAB PO (10:01)
[2017-10-10] MEDS: ATORVASTATIN 20 MG TAB PO (20:11)
[2017-10-11] MEDS: methylPREDNISolone INJ 125 MG/2 ML VIAL (J2930) IV ×2 (00:24→13:51)
[2017-10-11] MEDS: IPRATROPIUM 0.5MG/ALBUTEROL 2.5MG INH SOL UD 3ML (DUONEB)(J7620) NEB ×4 (00:30→23:45)
[2017-10-11] MEDS: HEPARIN SOD (PORCINE) 5000 UNITS/ML VIAL SC ×3 (05:32→21:02)
[2017-10-11] MEDS: SLF 3 ML SYR IV ×3 (05:33→21:02)
[2017-10-11 06:12] LABS: HEMATOCRIT 42.5 % (36.0-47.0); HEMOGLOBIN 14.3 g/dl (12.0-15.5); MEAN CORPUSCULAR HEMOGLOBIN 30.8 pg (27.0-33.0); MEAN CORPUSCULAR HGB CONC 33.6 g/dl (32.0-36.5); MEAN CORPUSCULAR VOLUME 91.6 fl (80.0-96.0); PLATELET COUNT, AUTOMATED 190 10^3/uL (150-450); RED BLOOD COUNT 4.64 10^6/uL (4.00-5.40); RED CELL DISTRIBUTION WIDTH 15.4 % (11.5-14.5); WHITE BLOOD COUNT 9.4 10^3/uL (4.0-10.0)
[2017-10-11 06:27] LABS: ANION GAP 9 MEQ/L (8-16); BLOOD UREA NITROGEN 33 MG/DL (7-18); C REACTIVE PROTEIN QUANTITATIV < 0.30 MG/DL (0.00-0.30); CALCIUM LEVEL 9.5 MG/DL (8.8-10.2); CARBON DIOXIDE LEVEL 28 MEQ/L (21-32); CHLORIDE LEVEL 105 MEQ/L (98-107); CREATININE FOR GFR 1.14 MG/DL (0.55-1.30); GLOMERULAR FILTRATION RATE 49.2 (>39); GLUCOSE, FASTING 141 MG/DL (70-100); MAGNESIUM LEVEL 2.4 MG/DL (1.8-2.4); POTASSIUM SERUM 3.4 MEQ/L (3.5-5.1); SODIUM LEVEL 142 MEQ/L (136-145)
[2017-10-11] MEDS: TIOTROPIUM INHALER/CAPSULE (SPIRIVA) INH (08:00)
[2017-10-11] MEDS ORDERED: ISOVUE-370 76% 100ML VIAL (Q9967) As Ordered (08:11)
[2017-10-11] MEDS: FUROSEMIDE 40 MG TAB PO (08:43)
[2017-10-11] MEDS: POTASSIUM CHLORIDE 10 MEQ SR TABLET PO ×2 (08:43→08:47)
[2017-10-11] MEDS: INDAPAMIDE 1.25MG TABLET PO (08:44)
[2017-10-11] MEDS: OCUVITE 1 TAB PO ×2 (08:44→21:01)
[2017-10-11] MEDS: ASPIRIN 81 MG ENTERIC TAB PO (08:45)
[2017-10-11] MEDS: CitaloPRAM (CeleXA) 20 MG TAB PO (08:45)
[2017-10-11] MEDS: VALSARTAN 80 MG TAB (DIOVAN) PO ×3 (08:45→21:02)
[2017-10-11] MEDS: ADVAIR HFA 230/21MCG INHALER INH ×2 (08:57→21:00)
[2017-10-11] MEDS: ATORVASTATIN 20 MG TAB PO (21:01)
[2017-10-12] MEDS: methylPREDNISolone INJ 125 MG/2 ML VIAL (J2930) IV (00:20)
[2017-10-12] MEDS: HEPARIN SOD (PORCINE) 5000 UNITS/ML VIAL SC ×3 (05:27→21:16)
[2017-10-12] MEDS: SLF 3 ML SYR IV ×3 (05:27→21:16)
[2017-10-12 06:43] LABS: HEMATOCRIT 47.1 % (36.0-47.0); HEMOGLOBIN 15.6 g/dl (12.0-15.5); MEAN CORPUSCULAR HEMOGLOBIN 30.5 pg (27.0-33.0); MEAN CORPUSCULAR HGB CONC 33.1 g/dl (32.0-36.5); MEAN CORPUSCULAR VOLUME 92.2 fl (80.0-96.0); PLATELET COUNT, AUTOMATED 215 10^3/uL (150-450); RED BLOOD COUNT 5.11 10^6/uL (4.00-5.40); RED CELL DISTRIBUTION WIDTH 15.7 % (11.5-14.5); WHITE BLOOD COUNT 8.5 10^3/uL (4.0-10.0)
[2017-10-12 07:02] LABS: ANION GAP 9 MEQ/L (8-16); BLOOD UREA NITROGEN 31 MG/DL (7-18); C REACTIVE PROTEIN QUANTITATIV < 0.30 MG/DL (0.00-0.30); CALCIUM LEVEL 9.7 MG/DL (8.8-10.2); CARBON DIOXIDE LEVEL 26 MEQ/L (21-32); CHLORIDE LEVEL 106 MEQ/L (98-107); CREATININE FOR GFR 1.16 MG/DL (0.55-1.30); GLOMERULAR FILTRATION RATE 48.2 (>39); GLUCOSE, FASTING 144 MG/DL (70-100); MAGNESIUM LEVEL 2.4 MG/DL (1.8-2.4); POTASSIUM SERUM 3.8 MEQ/L (3.5-5.1); SODIUM LEVEL 141 MEQ/L (136-145)
[2017-10-12] MEDS: IPRATROPIUM 0.5MG/ALBUTEROL 2.5MG INH SOL UD 3ML (DUONEB)(J7620) NEB ×2 (08:00→15:39)
[2017-10-12] MEDS: ASPIRIN 81 MG ENTERIC TAB PO (08:24)
[2017-10-12] MEDS: CitaloPRAM (CeleXA) 20 MG TAB PO (08:24)
[2017-10-12] MEDS: FUROSEMIDE 40 MG TAB PO (08:24)
[2017-10-12] MEDS: POTASSIUM CHLORIDE 10 MEQ SR TABLET PO (08:24)
[2017-10-12] MEDS: OCUVITE 1 TAB PO ×2 (08:24→21:15)
[2017-10-12] MEDS: ALPRAZolam 0.25 MG TAB PO (08:25)
[2017-10-12] MEDS: INDAPAMIDE 1.25MG TABLET PO (08:26)
[2017-10-12] MEDS: TIOTROPIUM INHALER/CAPSULE (SPIRIVA) INH (09:16)
[2017-10-12] MEDS: ADVAIR HFA 230/21MCG INHALER INH ×2 (09:16→20:33)
[2017-10-12] MEDS: methylPREDNISolone INJ 40 MG/1 ML VIAL (J2920) IV (13:29)
[2017-10-12] MEDS: VALSARTAN 80 MG TAB (DIOVAN) PO (21:15)
[2017-10-12] MEDS: ATORVASTATIN 20 MG TAB PO (21:16)
[2017-10-13] MEDS: methylPREDNISolone INJ 40 MG/1 ML VIAL (J2920) IV (01:38)
[2017-10-13] MEDS: SLF 3 ML SYR IV ×3 (05:35→20:21)
[2017-10-13] MEDS: HEPARIN SOD (PORCINE) 5000 UNITS/ML VIAL SC ×3 (05:35→20:21)
[2017-10-13 06:23] LABS: HEMATOCRIT 46.6 % (36.0-47.0); HEMOGLOBIN 15.7 g/dl (12.0-15.5); MEAN CORPUSCULAR HEMOGLOBIN 30.8 pg (27.0-33.0); MEAN CORPUSCULAR HGB CONC 33.7 g/dl (32.0-36.5); MEAN CORPUSCULAR VOLUME 91.6 fl (80.0-96.0); PLATELET COUNT, AUTOMATED 195 10^3/uL (150-450); RED BLOOD COUNT 5.09 10^6/uL (4.00-5.40); RED CELL DISTRIBUTION WIDTH 15.5 % (11.5-14.5); WHITE BLOOD COUNT 9.4 10^3/uL (4.0-10.0)
[2017-10-13 06:41] LABS: ANION GAP 6 MEQ/L (8-16); BLOOD UREA NITROGEN 30 MG/DL (7-18); CALCIUM LEVEL 9.4 MG/DL (8.8-10.2); CARBON DIOXIDE LEVEL 30 MEQ/L (21-32); CHLORIDE LEVEL 103 MEQ/L (98-107); CREATININE FOR GFR 1.14 MG/DL (0.55-1.30); GLOMERULAR FILTRATION RATE 49.2 (>39); GLUCOSE, FASTING 132 MG/DL (70-100); MAGNESIUM LEVEL 2.4 MG/DL (1.8-2.4); POTASSIUM SERUM 3.8 MEQ/L (3.5-5.1); SODIUM LEVEL 139 MEQ/L (136-145)
[2017-10-13 06:42] LABS: C REACTIVE PROTEIN QUANTITATIV < 0.30 MG/DL (0.00-0.30)
[2017-10-13] MEDS: ADVAIR HFA 230/21MCG INHALER INH ×2 (07:56→20:17)
[2017-10-13] MEDS: IPRATROPIUM 0.5MG/ALBUTEROL 2.5MG INH SOL UD 3ML (DUONEB)(J7620) NEB ×4 (07:56→23:36)
[2017-10-13] MEDS: TIOTROPIUM INHALER/CAPSULE (SPIRIVA) INH (07:56)
[2017-10-13] MEDS: POTASSIUM CHLORIDE 10 MEQ SR TABLET PO (08:46)
[2017-10-13] MEDS: CitaloPRAM (CeleXA) 20 MG TAB PO (08:46)
[2017-10-13] MEDS: ASPIRIN 81 MG ENTERIC TAB PO (08:46)
[2017-10-13] MEDS: OCUVITE 1 TAB PO ×2 (08:46→20:20)
[2017-10-13] MEDS: INDAPAMIDE 1.25MG TABLET PO (08:47)
[2017-10-13] MEDS: FUROSEMIDE 40 MG TAB PO (08:47)
[2017-10-13] MEDS: predniSONE 20 MG TAB PO (10:38)
[2017-10-13] MEDS: VALSARTAN 80 MG TAB (DIOVAN) PO (20:16)
[2017-10-13] MEDS: ATORVASTATIN 20 MG TAB PO (20:20)
[2017-10-14 05:44] LABS: HEMATOCRIT 47.2 % (36.0-47.0); HEMOGLOBIN 15.8 g/dl (12.0-15.5); MEAN CORPUSCULAR HGB CONC 33.5 g/dl (32.0-36.5); MEAN CORPUSCULAR VOLUME 92.5 fl (80.0-96.0); PLATELET COUNT, AUTOMATED 203 10^3/uL (150-450); RED CELL DISTRIBUTION WIDTH 15.5 % (11.5-14.5); WHITE BLOOD COUNT 9.3 10^3/uL (4.0-10.0)
[2017-10-14] MEDS: HEPARIN SOD (PORCINE) 5000 UNITS/ML VIAL SC ×3 (05:48→21:00)
[2017-10-14] MEDS: SLF 3 ML SYR IV ×3 (05:48→21:00)
[2017-10-14 06:00] LABS: ANION GAP 3 MEQ/L (8-16); BLOOD UREA NITROGEN 34 MG/DL (7-18); C REACTIVE PROTEIN QUANTITATIV < 0.30 MG/DL (0.00-0.30); CALCIUM LEVEL 9.2 MG/DL (8.8-10.2); CARBON DIOXIDE LEVEL 35 MEQ/L (21-32); CHLORIDE LEVEL 102 MEQ/L (98-107); CREATININE FOR GFR 1.11 MG/DL (0.55-1.30); GLOMERULAR FILTRATION RATE 50.7 (>39); GLUCOSE, FASTING 107 MG/DL (70-100); MAGNESIUM LEVEL 2.4 MG/DL (1.8-2.4); POTASSIUM SERUM 4.3 MEQ/L (3.5-5.1); SODIUM LEVEL 140 MEQ/L (136-145)
[2017-10-14] MEDS: TIOTROPIUM INHALER/CAPSULE (SPIRIVA) INH (07:30)
[2017-10-14] MEDS: IPRATROPIUM 0.5MG/ALBUTEROL 2.5MG INH SOL UD 3ML (DUONEB)(J7620) NEB ×2 (07:31→15:11)
[2017-10-14] MEDS: ADVAIR HFA 230/21MCG INHALER INH ×2 (07:31→19:42)
[2017-10-14] MEDS: POTASSIUM CHLORIDE 10 MEQ SR TABLET PO (08:30)
[2017-10-14] MEDS: OCUVITE 1 TAB PO ×2 (08:30→21:00)
[2017-10-14] MEDS: INDAPAMIDE 1.25MG TABLET PO (08:30)
[2017-10-14] MEDS: CitaloPRAM (CeleXA) 20 MG TAB PO (08:31)
[2017-10-14] MEDS: predniSONE 20 MG TAB PO (08:31)
[2017-10-14] MEDS: FUROSEMIDE 40 MG TAB PO (08:31)
[2017-10-14] MEDS: ASPIRIN 81 MG ENTERIC TAB PO (08:31)
[2017-10-14] MEDS: ALPRAZolam 0.25 MG TAB PO (08:31)
[2017-10-14] MEDS: VALSARTAN 80 MG TAB (DIOVAN) PO (20:58)
[2017-10-14] MEDS: ATORVASTATIN 20 MG TAB PO (21:00)
[2017-10-15] MEDS: SLF 3 ML SYR IV (05:29)
[2017-10-15] MEDS: HEPARIN SOD (PORCINE) 5000 UNITS/ML VIAL SC (05:29)
[2017-10-15 06:34] LABS: HEMATOCRIT 46.5 % (36.0-47.0); HEMOGLOBIN 15.3 g/dl (12.0-15.5); MEAN CORPUSCULAR HEMOGLOBIN 30.9 pg (27.0-33.0); MEAN CORPUSCULAR HGB CONC 32.9 g/dl (32.0-36.5); MEAN CORPUSCULAR VOLUME 93.9 fl (80.0-96.0); PLATELET COUNT, AUTOMATED 182 10^3/uL (150-450); RED BLOOD COUNT 4.95 10^6/uL (4.00-5.40); RED CELL DISTRIBUTION WIDTH 15.6 % (11.5-14.5); WHITE BLOOD COUNT 9.4 10^3/uL (4.0-10.0)
[2017-10-15 06:51] LABS: ANION GAP 4 MEQ/L (8-16); BLOOD UREA NITROGEN 38 MG/DL (7-18); C REACTIVE PROTEIN QUANTITATIV < 0.30 MG/DL (0.00-0.30); CALCIUM LEVEL 9.5 MG/DL (8.8-10.2); CARBON DIOXIDE LEVEL 36 MEQ/L (21-32); CHLORIDE LEVEL 101 MEQ/L (98-107); GLOMERULAR FILTRATION RATE 46.4 (>39); GLUCOSE, FASTING 108 MG/DL (70-100); MAGNESIUM LEVEL 2.4 MG/DL (1.8-2.4); POTASSIUM SERUM 4.3 MEQ/L (3.5-5.1); SODIUM LEVEL 141 MEQ/L (136-145)
[2017-10-15] MEDS: IPRATROPIUM 0.5MG/ALBUTEROL 2.5MG INH SOL UD 3ML (DUONEB)(J7620) NEB ×2 (08:00)
[2017-10-15] MEDS: OCUVITE 1 TAB PO (08:30)
[2017-10-15] MEDS: ASPIRIN 81 MG ENTERIC TAB PO (08:30)
[2017-10-15] MEDS: predniSONE 20 MG TAB PO (08:30)
[2017-10-15] MEDS: POTASSIUM CHLORIDE 10 MEQ SR TABLET PO (08:30)
[2017-10-15] MEDS: INDAPAMIDE 1.25MG TABLET PO (08:30)
[2017-10-15] MEDS: TIOTROPIUM INHALER/CAPSULE (SPIRIVA) INH (08:31)
[2017-10-15] MEDS: FUROSEMIDE 40 MG TAB PO (08:31)
[2017-10-15] MEDS: ADVAIR HFA 230/21MCG INHALER INH (08:31)
[2017-10-15] MEDS: CitaloPRAM (CeleXA) 20 MG TAB PO (08:31)
== END 2017-10-15 10:55 | disposition home or self-care (01) | DRG 189 ==
LOC: M PCU 10-10 01:21 → M ED 12:27 → M MSPAV 10-10 15:22 → M ED INP 17:29
DX: J96.21 Acute and chronic respiratory failure with hypoxia (principal); C96.6 Unifocal Langerhans-cell histiocytosis; E87.2 Acidosis; J43.9 Emphysema, unspecified; J84.10 Pulmonary fibrosis, unspecified; H35.30 Unspecified macular degeneration; I10 Essential (primary) hypertension; E78.00 Pure hypercholesterolemia, unspecified; Z98.41 Cataract extraction status, right eye; Z98.42 Cataract extraction status, left eye; Z87.891 Personal history of nicotine dependence; Z79.82 Long term (current) use of aspirin; Z79.899 Other long term (current) drug therapy

== ENCOUNTER 2017-12-09 11:20 | Inpatient (IN) | payer OTHER ==
[2017-12-09 12:18] LABS: BASO # 0.1 10^3/uL (0.0-0.2); BASO % 0.7 % (0.0-1.0); EOS % 0.1 % (0.0-3.0); HEMATOCRIT 55.1 % (36.0-47.0); HEMOGLOBIN 18.3 g/dl (12.0-15.5); IMMATURE GRANULOCYTE % 0.8 % (0-3.0); LYMPH # 1.2 10^3/uL (1.5-4.5); MEAN CORPUSCULAR HEMOGLOBIN 31.8 pg (27.0-33.0); MEAN CORPUSCULAR HGB CONC 33.2 g/dl (32.0-36.5); MEAN CORPUSCULAR VOLUME 95.7 fl (80.0-96.0); MONO % 9.6 % (0.0-5.0); NEUTROPHILS # 8.3 10^3/uL (1.8-7.7); NEUTROPHILS % 77.8 % (36.0-66.0); PLATELET COUNT, AUTOMATED 266 10^3/uL (150-450); RED BLOOD COUNT 5.76 10^6/uL (4.00-5.40); RED CELL DISTRIBUTION WIDTH 15.9 % (11.5-14.5); WHITE BLOOD COUNT 10.6 10^3/uL (4.0-10.0)
[2017-12-09 12:26] LABS: INR 1.19; PROTHROMBIN TIME 15.3 SECONDS (12.1-14.4)
[2017-12-09 12:40] LABS: VENOUS BASE EXCESS 0.7 (-2.0-2.0); VENOUS HCO3 25.5 MEQ/L (23.0-27.0); VENOUS O2 SATURATION 57.3 % (60.0-80.0); VENOUS PARTIAL PRESSURE CO2 41.4 mmHg (38.0-50.0); VENOUS PARTIAL PRESSURE O2 31.2 mmHg (30.0-50.0); VENOUS PH 7.408 UNITS (7.330-7.430); VENOUS STANDARD HCO3 23.8 MEQ/L; VENOUS TOTAL CO2 26.8 MEQ/L (24.0-28.0)
[2017-12-09 12:48] LABS: ALBUMIN 3.6 GM/DL (3.2-5.2); ALBUMIN/GLOBULIN RATIO 1.33 (1.00-1.93); ALKALINE PHOSPHATASE 99 U/L (45-117); ALT/SGPT 61 U/L (12-78); ANION GAP 15 MEQ/L (8-16); AST/SGOT 63 U/L (7-37); BILIRUBIN,DIRECT 0.7 MG/DL (0.0-0.2); BILIRUBIN,TOTAL 2.5 MG/DL (0.2-1.0); BLOOD UREA NITROGEN 32 MG/DL (7-18); CARBON DIOXIDE LEVEL 26 MEQ/L (21-32); CHLORIDE LEVEL 100 MEQ/L (98-107); CPK CREATINE PHOSPHOKINASE 108 U/L (26-192); GLUCOSE, FASTING 130 MG/DL (70-100); POTASSIUM SERUM 4.4 MEQ/L (3.5-5.1); SODIUM LEVEL 141 MEQ/L (136-145); TOTAL PROTEIN 6.3 GM/DL (6.4-8.2); TROPONIN I 0.07 NG/ML (< 0.10)
[2017-12-09 12:54] LABS: CK-MB VALUE MASS 11.1 NG/ML (<3.6); MB/CK RELATIVE INDEX 10.27 (< OR =4); NT-PRO BNP 4918 PG/ML (<450)
[2017-12-09] MEDS: NS 1,000 ML IV (13:00)
[2017-12-09 13:06] LABS: THEOPHYLLINE LEVEL 26.4 UG/ML (10.0-20.0)
[2017-12-09 13:07] LABS: LACTIC ACID SEPSIS PROTOCOL 3.8 MMOL/L (0.4-2.0)
[2017-12-09] MEDS: ONDANSETRON 4MG/2ML VIAL (J2405) IV (13:40)
[2017-12-09] MEDS: METOCLOPRAMIDE INJ 10MG/2ML VIAL (J2765) IV (15:45)
[2017-12-09 16:27] LABS: FREE T4 1.73 NG/DL (0.76-1.46)
[2017-12-09 16:51] LABS: PTH INTACT 152.1 PG/ML (18.5-88.0)
[2017-12-09] MEDS: DIGOXIN INJ 0.5 MG/2 ML AMP (J1160) IV ×2 (16:52→21:17)
[2017-12-09] MEDS ORDERED: APIXABAN 5 MG TAB (ELIQUIS) As Ordered (18:00)
[2017-12-09] MEDS: SODIUM CHLORIDE 0.9% 1000 ML IV (18:07)
[2017-12-09] MEDS: methylPREDNISolone INJ 125 MG/2 ML VIAL (J2930) IV (18:08)
[2017-12-09] MEDS: APIXABAN 2.5 MG TAB (ELIQUIS) PO (18:10)
[2017-12-09 19:51] LABS: CK-MB VALUE MASS 11.8 NG/ML (<3.6); CPK CREATINE PHOSPHOKINASE 108 U/L (26-192); MB/CK RELATIVE INDEX 10.92 (< OR =4); TROPONIN I 0.08 NG/ML (< 0.10)
[2017-12-09] MEDS ORDERED: ONDANSETRON 4MG/2ML VIAL (J2405) IV (20:00)
[2017-12-09 20:29] LABS: LACTIC ACID SEPSIS PROTOCOL 2.7 MMOL/L (0.4-2.0)
[2017-12-09 20:38] LABS: TOTAL 25(OH) VITAMIN D 41.4 NG/ML (30.0-100.0)
[2017-12-09] MEDS: ATORVASTATIN 20 MG TAB PO (21:17)
[2017-12-09] MEDS ORDERED: HEPARIN SOD (PORCINE) 5000 UNITS/ML VIAL SC (22:00)
[2017-12-10] MEDS: DIGOXIN INJ 0.5 MG/2 ML AMP (J1160) IV (00:10)
[2017-12-10 00:44] LABS: CK-MB VALUE MASS 14.1 NG/ML (<3.6); CPK CREATINE PHOSPHOKINASE 135 U/L (26-192); MB/CK RELATIVE INDEX 10.44 (< OR =4); TROPONIN I 0.08 NG/ML (< 0.10)
[2017-12-10] MEDS: methylPREDNISolone INJ 125 MG/2 ML VIAL (J2930) IV (01:44)
[2017-12-10] MEDS: ADVAIR HFA 115/21MCG INHALER INH ×3 (02:16→21:05)
[2017-12-10 05:54] LABS: HEMATOCRIT 49.3 % (36.0-47.0); HEMOGLOBIN 16.4 g/dl (12.0-15.5); MEAN CORPUSCULAR HEMOGLOBIN 31.7 pg (27.0-33.0); MEAN CORPUSCULAR HGB CONC 33.3 g/dl (32.0-36.5); MEAN CORPUSCULAR VOLUME 95.4 fl (80.0-96.0); PLATELET COUNT, AUTOMATED 215 10^3/uL (150-450); RED BLOOD COUNT 5.17 10^6/uL (4.00-5.40); RED CELL DISTRIBUTION WIDTH 14.8 % (11.5-14.5); WHITE BLOOD COUNT 7.3 10^3/uL (4.0-10.0)
[2017-12-10] MEDS ORDERED: LEVOTHYROXINE 12.5MCG PER 1/2 TAB (0.0125MG) PO (06:00)
[2017-12-10 06:22] LABS: ALBUMIN 3.1 GM/DL (3.2-5.2); ALBUMIN/GLOBULIN RATIO 1.11 (1.00-1.93); ALKALINE PHOSPHATASE 115 U/L (45-117); ALT/SGPT 65 U/L (12-78); ANION GAP 10 MEQ/L (8-16); AST/SGOT 55 U/L (7-37); BILIRUBIN,TOTAL 1.7 MG/DL (0.2-1.0); BLOOD UREA NITROGEN 34 MG/DL (7-18); CALCIUM LEVEL 9.7 MG/DL (8.8-10.2); CARBON DIOXIDE LEVEL 25 MEQ/L (21-32); CHLORIDE LEVEL 104 MEQ/L (98-107); CREATININE FOR GFR 1.24 MG/DL (0.55-1.30); GLOMERULAR FILTRATION RATE 44.7 (>39); GLUCOSE, FASTING 147 MG/DL (70-100); MAGNESIUM LEVEL 2.1 MG/DL (1.8-2.4); POTASSIUM SERUM 3.8 MEQ/L (3.5-5.1); SODIUM LEVEL 139 MEQ/L (136-145); TOTAL PROTEIN 5.9 GM/DL (6.4-8.2)
[2017-12-10] MEDS: TIOTROPIUM INHALER/CAPSULE (SPIRIVA) INH (07:48)
[2017-12-10] MEDS: methylPREDNISolone INJ 40 MG/1 ML VIAL (J2920) IV (08:48)
[2017-12-10] MEDS: ASPIRIN 81 MG ENTERIC TAB PO (08:49)
[2017-12-10] MEDS: APIXABAN 2.5 MG TAB (ELIQUIS) PO ×2 (08:49→22:00)
[2017-12-10] MEDS: INDAPAMIDE 1.25MG TABLET PO (08:49)
[2017-12-10] MEDS: CitaloPRAM (CeleXA) 20 MG TAB PO (08:49)
[2017-12-10 09:05] LABS: THEOPHYLLINE LEVEL 22.1 UG/ML (10.0-20.0)
[2017-12-10] MEDS: ALPRAZolam 0.25 MG TAB PO (09:47)
[2017-12-10] MEDS: POTASSIUM CHLORIDE 10 MEQ SR TABLET PO (11:16)
[2017-12-10] MEDS: AMIODARONE 200 MG TAB (PACERONE) PO (15:20)
[2017-12-10] MEDS ORDERED: PROPOFOL 200 MG/20 ML VIAL As Ordered (19:19)
[2017-12-10] MEDS ORDERED: MIDAZOLAM INJ 5 MG/ML VIAL (J2250) As Ordered (19:41)
[2017-12-10] MEDS: ATORVASTATIN 20 MG TAB PO (22:00)
[2017-12-11 05:56] LABS: HEMATOCRIT 49.3 % (36.0-47.0); HEMOGLOBIN 15.8 g/dl (12.0-15.5); MEAN CORPUSCULAR HEMOGLOBIN 31.2 pg (27.0-33.0); MEAN CORPUSCULAR VOLUME 97.4 fl (80.0-96.0); PLATELET COUNT, AUTOMATED 216 10^3/uL (150-450); RED BLOOD COUNT 5.06 10^6/uL (4.00-5.40); RED CELL DISTRIBUTION WIDTH 15.1 % (11.5-14.5); WHITE BLOOD COUNT 16.1 10^3/uL (4.0-10.0)
[2017-12-11 06:16] LABS: ALBUMIN 3.2 GM/DL (3.2-5.2); ALBUMIN/GLOBULIN RATIO 1.23 (1.00-1.93); ALKALINE PHOSPHATASE 154 U/L (45-117); ALT/SGPT 68 U/L (12-78); ANION GAP 9 MEQ/L (8-16); AST/SGOT 55 U/L (7-37); BILIRUBIN,TOTAL 1.4 MG/DL (0.2-1.0); BLOOD UREA NITROGEN 34 MG/DL (7-18); CARBON DIOXIDE LEVEL 26 MEQ/L (21-32); CHLORIDE LEVEL 105 MEQ/L (98-107); CREATININE FOR GFR 1.26 MG/DL (0.55-1.30); GLOMERULAR FILTRATION RATE 43.8 (>39); GLUCOSE, FASTING 124 MG/DL (70-100); POTASSIUM SERUM 3.9 MEQ/L (3.5-5.1); SODIUM LEVEL 140 MEQ/L (136-145); TOTAL PROTEIN 5.8 GM/DL (6.4-8.2)
[2017-12-11] MEDS: ADVAIR HFA 115/21MCG INHALER INH ×2 (08:16→20:01)
[2017-12-11] MEDS: TIOTROPIUM INHALER/CAPSULE (SPIRIVA) INH (08:16)
[2017-12-11] MEDS: CitaloPRAM (CeleXA) 20 MG TAB PO (08:29)
[2017-12-11] MEDS: TORSEMIDE 20 MG TAB PO (08:31)
[2017-12-11] MEDS: APIXABAN 5 MG TAB (ELIQUIS) PO ×2 (08:35→20:38)
[2017-12-11] MEDS: VERAPAMIL 40 MG TAB PO ×3 (08:36→20:38)
[2017-12-11 08:47] LABS: THEOPHYLLINE LEVEL 17.6 UG/ML (10.0-20.0)
[2017-12-11] MEDS: ACETAMINOPHEN TAB 650MG DOSE (2X325MG) PO (09:04)
[2017-12-11] MEDS: CHLORASEPTIC SPRAY MT (10:51)
[2017-12-11] MEDS: ALPRAZolam 0.25 MG TAB PO ×2 (14:28→22:45)
[2017-12-11] MEDS: ATORVASTATIN 20 MG TAB PO (20:38)
[2017-12-12 06:02] LABS: HEMATOCRIT 47.6 % (36.0-47.0); HEMOGLOBIN 15.3 g/dl (12.0-15.5); MEAN CORPUSCULAR HEMOGLOBIN 31.7 pg (27.0-33.0); MEAN CORPUSCULAR HGB CONC 32.1 g/dl (32.0-36.5); MEAN CORPUSCULAR VOLUME 98.8 fl (80.0-96.0); PLATELET COUNT, AUTOMATED 198 10^3/uL (150-450); RED BLOOD COUNT 4.82 10^6/uL (4.00-5.40); RED CELL DISTRIBUTION WIDTH 15.1 % (11.5-14.5); WHITE BLOOD COUNT 11.8 10^3/uL (4.0-10.0)
[2017-12-12 06:24] LABS: ALBUMIN 2.9 GM/DL (3.2-5.2); ALBUMIN/GLOBULIN RATIO 1.12 (1.00-1.93); ALKALINE PHOSPHATASE 159 U/L (45-117); ALT/SGPT 82 U/L (12-78); ANION GAP 8 MEQ/L (8-16); AST/SGOT 57 U/L (7-37); BILIRUBIN,TOTAL 0.9 MG/DL (0.2-1.0); BLOOD UREA NITROGEN 42 MG/DL (7-18); CALCIUM LEVEL 9.6 MG/DL (8.8-10.2); CARBON DIOXIDE LEVEL 32 MEQ/L (21-32); CHLORIDE LEVEL 101 MEQ/L (98-107); CREATININE FOR GFR 1.47 MG/DL (0.55-1.30); GLOMERULAR FILTRATION RATE 36.7 (>39); GLUCOSE, FASTING 113 MG/DL (70-100); POTASSIUM SERUM 3.1 MEQ/L (3.5-5.1); SODIUM LEVEL 141 MEQ/L (136-145); TOTAL PROTEIN 5.5 GM/DL (6.4-8.2)
[2017-12-12] MEDS: ADVAIR HFA 115/21MCG INHALER INH ×2 (07:30→20:35)
[2017-12-12] MEDS: TIOTROPIUM INHALER/CAPSULE (SPIRIVA) INH (07:30)
[2017-12-12] MEDS: CitaloPRAM (CeleXA) 20 MG TAB PO (09:02)
[2017-12-12] MEDS: POTASSIUM CHLORIDE 10 MEQ SR TABLET PO (09:02)
[2017-12-12] MEDS: APIXABAN 5 MG TAB (ELIQUIS) PO ×2 (09:02→20:48)
[2017-12-12] MEDS: VERAPAMIL 40 MG TAB PO ×3 (09:03→20:48)
[2017-12-12] MEDS: MAALOX 30 ML SUSP *UDC PO (12:10)
[2017-12-12] MEDS: ATORVASTATIN 20 MG TAB PO (20:47)
[2017-12-12] MEDS: ALPRAZolam 0.25 MG TAB PO (20:48)
[2017-12-13 03:56] LABS: HEMATOCRIT 47.2 % (36.0-47.0); HEMOGLOBIN 15.1 g/dl (12.0-15.5); MEAN CORPUSCULAR HEMOGLOBIN 31.2 pg (27.0-33.0); MEAN CORPUSCULAR VOLUME 97.5 fl (80.0-96.0); PLATELET COUNT, AUTOMATED 187 10^3/uL (150-450); RED BLOOD COUNT 4.84 10^6/uL (4.00-5.40); WHITE BLOOD COUNT 10.8 10^3/uL (4.0-10.0)
[2017-12-13 04:20] LABS: ALBUMIN 2.8 GM/DL (3.2-5.2); ALBUMIN/GLOBULIN RATIO 1.04 (1.00-1.93); ALKALINE PHOSPHATASE 132 U/L (45-117); ALT/SGPT 78 U/L (12-78); ANION GAP 6 MEQ/L (8-16); AST/SGOT 49 U/L (7-37); BILIRUBIN,TOTAL 1.3 MG/DL (0.2-1.0); BLOOD UREA NITROGEN 32 MG/DL (7-18); CALCIUM LEVEL 9.6 MG/DL (8.8-10.2); CARBON DIOXIDE LEVEL 34 MEQ/L (21-32); CHLORIDE LEVEL 102 MEQ/L (98-107); CREATININE FOR GFR 1.05 MG/DL (0.55-1.30); GLOMERULAR FILTRATION RATE 54.1 (>39); GLUCOSE, FASTING 115 MG/DL (70-100); POTASSIUM SERUM 4.1 MEQ/L (3.5-5.1); SODIUM LEVEL 142 MEQ/L (136-145); TOTAL PROTEIN 5.5 GM/DL (6.4-8.2)
[2017-12-13] MEDS: TIOTROPIUM INHALER/CAPSULE (SPIRIVA) INH (07:16)
[2017-12-13] MEDS: ADVAIR HFA 115/21MCG INHALER INH ×2 (07:16→19:43)
[2017-12-13] MEDS: VERAPAMIL 40 MG TAB PO ×4 (08:40→21:00)
[2017-12-13] MEDS: TORSEMIDE 20 MG TAB PO (08:41)
[2017-12-13] MEDS: APIXABAN 5 MG TAB (ELIQUIS) PO (08:41)
[2017-12-13] MEDS: CitaloPRAM (CeleXA) 20 MG TAB PO (08:41)
[2017-12-13 15:57] LABS: HEMATOCRIT 47.2 % (36.0-47.0); HEMOGLOBIN 15.6 g/dl (12.0-15.5); MEAN CORPUSCULAR HGB CONC 33.1 g/dl (32.0-36.5); MEAN CORPUSCULAR VOLUME 96.9 fl (80.0-96.0); PLATELET COUNT, AUTOMATED 185 10^3/uL (150-450); RED BLOOD COUNT 4.87 10^6/uL (4.00-5.40); WHITE BLOOD COUNT 12.5 10^3/uL (4.0-10.0)
[2017-12-13] MEDS: ACETAMINOPHEN TAB 650MG DOSE (2X325MG) PO (18:59)
[2017-12-13 21:20] LABS: HEMATOCRIT 46.2 % (36.0-47.0); HEMOGLOBIN 15.2 g/dl (12.0-15.5); MEAN CORPUSCULAR HEMOGLOBIN 31.7 pg (27.0-33.0); MEAN CORPUSCULAR HGB CONC 32.9 g/dl (32.0-36.5); MEAN CORPUSCULAR VOLUME 96.3 fl (80.0-96.0); PLATELET COUNT, AUTOMATED 175 10^3/uL (150-450); RED CELL DISTRIBUTION WIDTH 14.9 % (11.5-14.5); WHITE BLOOD COUNT 12.3 10^3/uL (4.0-10.0)
[2017-12-13] MEDS: ALPRAZolam 0.25 MG TAB PO (21:50)
[2017-12-13] MEDS: ATORVASTATIN 20 MG TAB PO (21:50)
[2017-12-14 04:06] LABS: HEMOGLOBIN 15.1 g/dl (12.0-15.5); MEAN CORPUSCULAR HEMOGLOBIN 31.8 pg (27.0-33.0); MEAN CORPUSCULAR HGB CONC 33.6 g/dl (32.0-36.5); MEAN CORPUSCULAR VOLUME 94.7 fl (80.0-96.0); PLATELET COUNT, AUTOMATED 172 10^3/uL (150-450); RED BLOOD COUNT 4.75 10^6/uL (4.00-5.40); RED CELL DISTRIBUTION WIDTH 14.8 % (11.5-14.5); WHITE BLOOD COUNT 11.2 10^3/uL (4.0-10.0)
[2017-12-14 04:23] LABS: ALBUMIN 2.6 GM/DL (3.2-5.2); ALBUMIN/GLOBULIN RATIO 0.96 (1.00-1.93); ALKALINE PHOSPHATASE 120 U/L (45-117); ALT/SGPT 65 U/L (12-78); ANION GAP 7 MEQ/L (8-16); AST/SGOT 34 U/L (7-37); BILIRUBIN,TOTAL 1.9 MG/DL (0.2-1.0); BLOOD UREA NITROGEN 29 MG/DL (7-18); CALCIUM LEVEL 9.3 MG/DL (8.8-10.2); CARBON DIOXIDE LEVEL 33 MEQ/L (21-32); CHLORIDE LEVEL 101 MEQ/L (98-107); CREATININE FOR GFR 0.97 MG/DL (0.55-1.30); GLOMERULAR FILTRATION RATE 59.3 (>39); GLUCOSE, FASTING 96 MG/DL (70-100); POTASSIUM SERUM 3.5 MEQ/L (3.5-5.1); SODIUM LEVEL 141 MEQ/L (136-145); TOTAL PROTEIN 5.3 GM/DL (6.4-8.2)
[2017-12-14] MEDS: ADVAIR HFA 115/21MCG INHALER INH ×2 (07:35→19:07)
[2017-12-14] MEDS: TIOTROPIUM INHALER/CAPSULE (SPIRIVA) INH (07:35)
[2017-12-14 08:35] LABS: HEMATOCRIT 47.9 % (36.0-47.0); HEMOGLOBIN 15.6 g/dl (12.0-15.5); MEAN CORPUSCULAR HEMOGLOBIN 31.6 pg (27.0-33.0); MEAN CORPUSCULAR HGB CONC 32.6 g/dl (32.0-36.5); MEAN CORPUSCULAR VOLUME 97.2 fl (80.0-96.0); PLATELET COUNT, AUTOMATED 181 10^3/uL (150-450); RED BLOOD COUNT 4.93 10^6/uL (4.00-5.40); RED CELL DISTRIBUTION WIDTH 15.1 % (11.5-14.5); WHITE BLOOD COUNT 11.9 10^3/uL (4.0-10.0)
[2017-12-14] MEDS: CitaloPRAM (CeleXA) 20 MG TAB PO (08:58)
[2017-12-14] MEDS: VERAPAMIL 40 MG TAB PO ×4 (08:58→20:45)
[2017-12-14] MEDS: TORSEMIDE 20 MG TAB PO (08:58)
[2017-12-14] MEDS: BISACODYL 10 MG SUPP PR (11:28)
[2017-12-14 14:06] LABS: AMORPHOUS SEDIMENT SMALL (NEGATIVE); APPEARANCE, URINE CLEAR (CLEAR); BACTERIA, URINE AUTO NEGATIVE (NEGATIVE); BILIRUBIN, URINE AUTO NEGATIVE (NEGATIVE); BLOOD, URINE BLOOD NEGATIVE (NEGATIVE); COLOR, URINE STRAW (YELLOW); GLUCOSE, URINE (UA) AUTO NEGATIVE (NEGATIVE); KETONE, URINE AUTO NEGATIVE (NEGATIVE); LEUKOCYTE ESTERASE, URINE AUTO NEGATIVE (NEGATIVE); MUCUS, URINE SMALL (NEGATIVE); NITRITE, URINE AUTO NEGATIVE (NEGATIVE); PROTEIN, URINE AUTO NEGATIVE (NEGATIVE); RBC, URINE AUTO 0 /HPF (0-3); SPECIFIC GRAVITY URINE AUTO 1.005 (1.002-1.035); SQUAMOUS EPITHELIAL CELL UR AU 0 /HPF (0-6); UROBILINOGEN, URINE AUTO 0.2 mg/dL (0.0-2.0); WBC, URINE AUTO 2 /HPF (0-3)
[2017-12-14 15:39] LABS: HEMATOCRIT 47.6 % (36.0-47.0); HEMOGLOBIN 15.7 g/dl (12.0-15.5); MEAN CORPUSCULAR HEMOGLOBIN 31.3 pg (27.0-33.0); PLATELET COUNT, AUTOMATED 177 10^3/uL (150-450); RED BLOOD COUNT 5.01 10^6/uL (4.00-5.40); RED CELL DISTRIBUTION WIDTH 14.9 % (11.5-14.5); WHITE BLOOD COUNT 12.3 10^3/uL (4.0-10.0)
[2017-12-14] MEDS: LEVALBUTEROL 1.25 MG/0.5 ML CONCENTRATE NEB NEB ×2 (16:14→19:08)
[2017-12-14] MEDS: ATORVASTATIN 20 MG TAB PO (20:45)
[2017-12-14 21:37] LABS: HEMATOCRIT 45.5 % (36.0-47.0); MEAN CORPUSCULAR HEMOGLOBIN 31.4 pg (27.0-33.0); MEAN CORPUSCULAR VOLUME 95.4 fl (80.0-96.0); PLATELET COUNT, AUTOMATED 173 10^3/uL (150-450); RED BLOOD COUNT 4.77 10^6/uL (4.00-5.40); RED CELL DISTRIBUTION WIDTH 14.8 % (11.5-14.5); WHITE BLOOD COUNT 10.9 10^3/uL (4.0-10.0)
[2017-12-15 03:22] LABS: HEMATOCRIT 44.7 % (36.0-47.0); MEAN CORPUSCULAR HEMOGLOBIN 32.1 pg (27.0-33.0); MEAN CORPUSCULAR HGB CONC 33.6 g/dl (32.0-36.5); MEAN CORPUSCULAR VOLUME 95.5 fl (80.0-96.0); PLATELET COUNT, AUTOMATED 167 10^3/uL (150-450); RED BLOOD COUNT 4.68 10^6/uL (4.00-5.40); WHITE BLOOD COUNT 10.7 10^3/uL (4.0-10.0)
[2017-12-15 03:40] LABS: ALBUMIN 2.6 GM/DL (3.2-5.2); ALKALINE PHOSPHATASE 107 U/L (45-117); ALT/SGPT 52 U/L (12-78); ANION GAP 6 MEQ/L (8-16); AST/SGOT 26 U/L (7-37); BILIRUBIN,TOTAL 2.4 MG/DL (0.2-1.0); BLOOD UREA NITROGEN 26 MG/DL (7-18); CALCIUM LEVEL 9.3 MG/DL (8.8-10.2); CARBON DIOXIDE LEVEL 35 MEQ/L (21-32); CHLORIDE LEVEL 99 MEQ/L (98-107); CREATININE FOR GFR 0.89 MG/DL (0.55-1.30); GLOMERULAR FILTRATION RATE > 60.0 (>39); GLUCOSE, FASTING 97 MG/DL (70-100); SODIUM LEVEL 140 MEQ/L (136-145); TOTAL PROTEIN 5.2 GM/DL (6.4-8.2)
[2017-12-15] MEDS: TIOTROPIUM INHALER/CAPSULE (SPIRIVA) INH (07:25)
[2017-12-15] MEDS: ADVAIR HFA 115/21MCG INHALER INH ×2 (07:25→20:29)
[2017-12-15] MEDS ORDERED: KCL 10MEQ/100ML SWI (KRUN) 10 MEQ in APPROPRIATE DILUENT 1 EA IV (09:00)
[2017-12-15] MEDS: TORSEMIDE 20 MG TAB PO (09:25)
[2017-12-15] MEDS: CitaloPRAM (CeleXA) 20 MG TAB PO (09:25)
[2017-12-15] MEDS: DIGOXIN INJ 0.5 MG/2 ML AMP (J1160) IV ×3 (09:26→17:00)
[2017-12-15] MEDS: POTASSIUM CHLORIDE 10% LIQ 20 MEQ/15 ML UDC PO (09:27)
[2017-12-15] MEDS: VERAPAMIL 40 MG TAB PO ×3 (09:37→20:15)
[2017-12-15 10:32] LABS: VITAMIN D 1,25 DIHYDROXY 45.7 pg/mL (19.9-79.3)
[2017-12-15 10:32] LABS: T3 REVERSE 71.7 ng/dL (9.2-24.1)
[2017-12-15] MEDS ORDERED: FUROSEMIDE 100 MG/10 ML VIAL (J1940) IV (11:30)
[2017-12-15] MEDS: SLF 3 ML SYR IV ×2 (14:46→21:00)
[2017-12-15 15:22] LABS: ANION GAP 7 MEQ/L (8-16); BLOOD UREA NITROGEN 28 MG/DL (7-18); CALCIUM LEVEL 9.8 MG/DL (8.8-10.2); CARBON DIOXIDE LEVEL 32 MEQ/L (21-32); CHLORIDE LEVEL 99 MEQ/L (98-107); CREATININE FOR GFR 1.15 MG/DL (0.55-1.30); GLOMERULAR FILTRATION RATE 48.7 (>39); GLUCOSE, FASTING 163 MG/DL (70-100); MAGNESIUM LEVEL 2.1 MG/DL (1.8-2.4); SODIUM LEVEL 138 MEQ/L (136-145)
[2017-12-15] MEDS ORDERED: VERAPAMIL 40 MG TAB PO (16:30)
[2017-12-15] MEDS: ATORVASTATIN 20 MG TAB PO (20:15)
[2017-12-15] MEDS: ALPRAZolam 0.25 MG TAB PO (20:18)
[2017-12-16] MEDS: VERAPAMIL 80 MG TAB PO ×3 (02:19→20:47)
[2017-12-16 05:35] LABS: HEMATOCRIT 45.8 % (36.0-47.0); HEMOGLOBIN 14.9 g/dl (12.0-15.5); MEAN CORPUSCULAR HEMOGLOBIN 31.6 pg (27.0-33.0); MEAN CORPUSCULAR HGB CONC 32.5 g/dl (32.0-36.5); MEAN CORPUSCULAR VOLUME 97.2 fl (80.0-96.0); PLATELET COUNT, AUTOMATED 185 10^3/uL (150-450); RED BLOOD COUNT 4.71 10^6/uL (4.00-5.40); RED CELL DISTRIBUTION WIDTH 14.9 % (11.5-14.5); WHITE BLOOD COUNT 12.9 10^3/uL (4.0-10.0)
[2017-12-16 05:54] LABS: ALBUMIN 2.5 GM/DL (3.2-5.2); ALBUMIN/GLOBULIN RATIO 0.93 (1.00-1.93); ALKALINE PHOSPHATASE 104 U/L (45-117); ALT/SGPT 46 U/L (12-78); ANION GAP 5 MEQ/L (8-16); AST/SGOT 25 U/L (7-37); BILIRUBIN,TOTAL 2.1 MG/DL (0.2-1.0); BLOOD UREA NITROGEN 24 MG/DL (7-18); CALCIUM LEVEL 9.6 MG/DL (8.8-10.2); CARBON DIOXIDE LEVEL 39 MEQ/L (21-32); CHLORIDE LEVEL 97 MEQ/L (98-107); CREATININE FOR GFR 1.05 MG/DL (0.55-1.30); GLOMERULAR FILTRATION RATE 54.1 (>39); GLUCOSE, FASTING 93 MG/DL (70-100); POTASSIUM SERUM 3.6 MEQ/L (3.5-5.1); SODIUM LEVEL 141 MEQ/L (136-145); TOTAL PROTEIN 5.2 GM/DL (6.4-8.2)
[2017-12-16] MEDS: SLF 3 ML SYR IV ×3 (06:00→20:48)
[2017-12-16] MEDS: TIOTROPIUM INHALER/CAPSULE (SPIRIVA) INH (07:26)
[2017-12-16] MEDS: ADVAIR HFA 115/21MCG INHALER INH ×2 (07:27→20:39)
[2017-12-16] MEDS: CitaloPRAM (CeleXA) 20 MG TAB PO (08:16)
[2017-12-16] MEDS: TORSEMIDE 20 MG TAB PO (08:16)
[2017-12-16] MEDS: VERAPAMIL 40 MG TAB PO (08:17)
[2017-12-16] MEDS: ATORVASTATIN 20 MG TAB PO (20:47)
[2017-12-16] MEDS: ALPRAZolam 0.25 MG TAB PO (22:16)
[2017-12-17] MEDS: SLF 3 ML SYR IV ×3 (06:00→21:47)
[2017-12-17] MEDS: ADVAIR HFA 115/21MCG INHALER INH ×2 (07:14→20:13)
[2017-12-17] MEDS: TIOTROPIUM INHALER/CAPSULE (SPIRIVA) INH (07:14)
[2017-12-17 08:14] LABS: BASO % 0.3 % (0.0-1.0); EOS # 0.1 10^3/uL (0.0-0.50); EOS % 0.9 % (0.0-3.0); HEMATOCRIT 47.8 % (36.0-47.0); HEMOGLOBIN 15.9 g/dl (12.0-15.5); IMMATURE GRANULOCYTE % 0.5 % (0-3.0); LYMPH # 0.9 10^3/uL (1.5-4.5); LYMPH % 7.3 % (24.0-44.0); MEAN CORPUSCULAR HEMOGLOBIN 31.5 pg (27.0-33.0); MEAN CORPUSCULAR HGB CONC 33.3 g/dl (32.0-36.5); MEAN CORPUSCULAR VOLUME 94.7 fl (80.0-96.0); MONO # 1.7 10^3/uL (0.0-0.8); MONO % 13.5 % (0.0-5.0); NEUTROPHILS # 9.5 10^3/uL (1.8-7.7); NEUTROPHILS % 77.5 % (36.0-66.0); PLATELET COUNT, AUTOMATED 199 10^3/uL (150-450); RED BLOOD COUNT 5.05 10^6/uL (4.00-5.40); RED CELL DISTRIBUTION WIDTH 14.8 % (11.5-14.5); WHITE BLOOD COUNT 12.3 10^3/uL (4.0-10.0)
[2017-12-17 08:30] LABS: ANION GAP 8 MEQ/L (8-16); BLOOD UREA NITROGEN 21 MG/DL (7-18); CALCIUM LEVEL 9.4 MG/DL (8.8-10.2); CARBON DIOXIDE LEVEL 36 MEQ/L (21-32); CHLORIDE LEVEL 97 MEQ/L (98-107); CREATININE FOR GFR 0.95 MG/DL (0.55-1.30); GLOMERULAR FILTRATION RATE > 60.0 (>39); GLUCOSE, FASTING 126 MG/DL (70-100); MAGNESIUM LEVEL 1.9 MG/DL (1.8-2.4); POTASSIUM SERUM 3.4 MEQ/L (3.5-5.1); SODIUM LEVEL 141 MEQ/L (136-145)
[2017-12-17] MEDS: VERAPAMIL 80 MG TAB PO ×3 (08:31→21:46)
[2017-12-17] MEDS: CitaloPRAM (CeleXA) 20 MG TAB PO (08:31)
[2017-12-17] MEDS: DIGOXIN 0.125 MG TAB PO (08:32)
[2017-12-17] MEDS: TORSEMIDE 20 MG TAB PO (08:32)
[2017-12-17] MEDS ORDERED: DIGOXIN INJ 0.5 MG/2 ML AMP (J1160) IV (09:00)
[2017-12-17] MEDS: FUROSEMIDE 40 MG/4 ML VIAL (J1940) IV (11:22)
[2017-12-17] MEDS: KCL 10MEQ/100ML SWI (KRUN) 10 MEQ in APPROPRIATE DILUENT 1 EA IV ×2 (17:12→18:32)
[2017-12-17] MEDS ORDERED: POTASSIUM CHLORIDE 10 MEQ SR TABLET PO (19:00)
[2017-12-17] MEDS: ATORVASTATIN 20 MG TAB PO (21:46)
[2017-12-18] MEDS: SLF 3 ML SYR IV ×3 (05:19→21:21)
[2017-12-18 05:50] LABS: HEMATOCRIT 44.7 % (36.0-47.0); HEMOGLOBIN 14.7 g/dl (12.0-15.5); MEAN CORPUSCULAR HEMOGLOBIN 31.5 pg (27.0-33.0); MEAN CORPUSCULAR HGB CONC 32.9 g/dl (32.0-36.5); MEAN CORPUSCULAR VOLUME 95.7 fl (80.0-96.0); PLATELET COUNT, AUTOMATED 176 10^3/uL (150-450); RED BLOOD COUNT 4.67 10^6/uL (4.00-5.40); RED CELL DISTRIBUTION WIDTH 14.7 % (11.5-14.5); WHITE BLOOD COUNT 11.8 10^3/uL (4.0-10.0)
[2017-12-18 06:06] LABS: ANION GAP 6 MEQ/L (8-16); BLOOD UREA NITROGEN 20 MG/DL (7-18); CALCIUM LEVEL 9.1 MG/DL (8.8-10.2); CARBON DIOXIDE LEVEL 39 MEQ/L (21-32); CHLORIDE LEVEL 95 MEQ/L (98-107); CREATININE FOR GFR 1.05 MG/DL (0.55-1.30); GLOMERULAR FILTRATION RATE 54.1 (>39); GLUCOSE, FASTING 97 MG/DL (70-100); MAGNESIUM LEVEL 1.8 MG/DL (1.8-2.4); SODIUM LEVEL 140 MEQ/L (136-145)
[2017-12-18] MEDS: POTASSIUM CHLORIDE 10 MEQ SR TABLET PO (06:49)
[2017-12-18] MEDS: KCL 10MEQ/100ML SWI (KRUN) 10 MEQ in APPROPRIATE DILUENT 1 EA IV ×3 (06:50→10:22)
[2017-12-18] MEDS: TIOTROPIUM INHALER/CAPSULE (SPIRIVA) INH (08:11)
[2017-12-18] MEDS: ADVAIR HFA 115/21MCG INHALER INH ×2 (08:11→19:53)
[2017-12-18] MEDS: TORSEMIDE 20 MG TAB PO (08:51)
[2017-12-18] MEDS: VERAPAMIL 80 MG TAB PO ×3 (08:51→20:38)
[2017-12-18] MEDS: CitaloPRAM (CeleXA) 20 MG TAB PO (08:51)
[2017-12-18] MEDS: FUROSEMIDE 40 MG/4 ML VIAL (J1940) IV (14:13)
[2017-12-18] MEDS: ATORVASTATIN 20 MG TAB PO (20:37)
[2017-12-18] MEDS: predniSONE 10 MG TAB PO (20:39)
[2017-12-19] MEDS: SLF 3 ML SYR IV ×3 (05:05→20:41)
[2017-12-19 05:50] LABS: HEMATOCRIT 43.5 % (36.0-47.0); HEMOGLOBIN 14.5 g/dl (12.0-15.5); MEAN CORPUSCULAR HEMOGLOBIN 31.9 pg (27.0-33.0); MEAN CORPUSCULAR HGB CONC 33.3 g/dl (32.0-36.5); MEAN CORPUSCULAR VOLUME 95.6 fl (80.0-96.0); PLATELET COUNT, AUTOMATED 176 10^3/uL (150-450); RED BLOOD COUNT 4.55 10^6/uL (4.00-5.40); RED CELL DISTRIBUTION WIDTH 14.8 % (11.5-14.5); WHITE BLOOD COUNT 10.3 10^3/uL (4.0-10.0)
[2017-12-19 06:10] LABS: ANION GAP 4 MEQ/L (8-16); BLOOD UREA NITROGEN 22 MG/DL (7-18); CALCIUM LEVEL 9.2 MG/DL (8.8-10.2); CARBON DIOXIDE LEVEL 36 MEQ/L (21-32); CHLORIDE LEVEL 96 MEQ/L (98-107); CREATININE FOR GFR 0.75 MG/DL (0.55-1.30); GLOMERULAR FILTRATION RATE > 60.0 (>39); GLUCOSE, FASTING 123 MG/DL (70-100); MAGNESIUM LEVEL 1.8 MG/DL (1.8-2.4); NT-PRO BNP 2453 PG/ML (<450); POTASSIUM SERUM 3.6 MEQ/L (3.5-5.1); SODIUM LEVEL 136 MEQ/L (136-145)
[2017-12-19] MEDS: VERAPAMIL 80 MG TAB PO ×3 (08:32→20:40)
[2017-12-19] MEDS: DIGOXIN 0.125 MG TAB PO (08:33)
[2017-12-19] MEDS: CitaloPRAM (CeleXA) 20 MG TAB PO (08:33)
[2017-12-19] MEDS: TORSEMIDE 20 MG TAB PO (08:33)
[2017-12-19] MEDS: TIOTROPIUM INHALER/CAPSULE (SPIRIVA) INH (10:15)
[2017-12-19] MEDS: ADVAIR HFA 115/21MCG INHALER INH ×2 (10:15→20:47)
[2017-12-19] MEDS: predniSONE 20 MG TAB PO (13:53)
[2017-12-19] MEDS: ATORVASTATIN 20 MG TAB PO (20:40)
[2017-12-19] MEDS: predniSONE 10 MG TAB PO (20:41)
[2017-12-20] MEDS: SLF 3 ML SYR IV ×3 (05:03→21:40)
[2017-12-20 05:35] LABS: HEMATOCRIT 41.3 % (36.0-47.0); MEAN CORPUSCULAR HEMOGLOBIN 31.5 pg (27.0-33.0); MEAN CORPUSCULAR HGB CONC 33.9 g/dl (32.0-36.5); PLATELET COUNT, AUTOMATED 197 10^3/uL (150-450); RED BLOOD COUNT 4.44 10^6/uL (4.00-5.40); RED CELL DISTRIBUTION WIDTH 14.3 % (11.5-14.5)
[2017-12-20 05:46] LABS: ANION GAP 7 MEQ/L (8-16); BLOOD UREA NITROGEN 23 MG/DL (7-18); CALCIUM LEVEL 9.1 MG/DL (8.8-10.2); CARBON DIOXIDE LEVEL 36 MEQ/L (21-32); CHLORIDE LEVEL 95 MEQ/L (98-107); GLOMERULAR FILTRATION RATE > 60.0 (>39); GLUCOSE, FASTING 147 MG/DL (70-100); MAGNESIUM LEVEL 1.9 MG/DL (1.8-2.4); POTASSIUM SERUM 3.4 MEQ/L (3.5-5.1); SODIUM LEVEL 138 MEQ/L (136-145)
[2017-12-20] MEDS: ADVAIR HFA 115/21MCG INHALER INH ×2 (07:30→20:34)
[2017-12-20] MEDS: TIOTROPIUM INHALER/CAPSULE (SPIRIVA) INH (07:31)
[2017-12-20] MEDS: CitaloPRAM (CeleXA) 20 MG TAB PO (08:30)
[2017-12-20] MEDS: TORSEMIDE 20 MG TAB PO (08:30)
[2017-12-20] MEDS: predniSONE 20 MG TAB PO (08:30)
[2017-12-20] MEDS: VERAPAMIL 80 MG TAB PO ×3 (08:30→20:29)
[2017-12-20 08:33] LABS: NT-PRO BNP 2931 PG/ML (<450)
[2017-12-20] MEDS: KCL 10MEQ/100ML SWI (KRUN) 10 MEQ in APPROPRIATE DILUENT 1 EA IV (10:25)
[2017-12-20] MEDS: TORSEMIDE 10 MG TABLET PO (10:25)
[2017-12-20] MEDS: FUROSEMIDE 40 MG/4 ML VIAL (J1940) IV (17:02)
[2017-12-20] MEDS: predniSONE 10 MG TAB PO (20:29)
[2017-12-20] MEDS: ATORVASTATIN 20 MG TAB PO (20:29)
[2017-12-21 05:10] LABS: HEMATOCRIT 43.8 % (36.0-47.0); HEMOGLOBIN 14.3 g/dl (12.0-15.5); MEAN CORPUSCULAR HGB CONC 32.6 g/dl (32.0-36.5); PLATELET COUNT, AUTOMATED 213 10^3/uL (150-450); RED BLOOD COUNT 4.61 10^6/uL (4.00-5.40); RED CELL DISTRIBUTION WIDTH 14.7 % (11.5-14.5); WHITE BLOOD COUNT 11.2 10^3/uL (4.0-10.0)
[2017-12-21] MEDS: SLF 3 ML SYR IV ×4 (05:10→20:55)
[2017-12-21 05:32] LABS: ANION GAP 7 MEQ/L (8-16); BLOOD UREA NITROGEN 25 MG/DL (7-18); CALCIUM LEVEL 9.1 MG/DL (8.8-10.2); CARBON DIOXIDE LEVEL 35 MEQ/L (21-32); CHLORIDE LEVEL 97 MEQ/L (98-107); CREATININE FOR GFR 0.84 MG/DL (0.55-1.30); GLOMERULAR FILTRATION RATE > 60.0 (>39); GLUCOSE, FASTING 124 MG/DL (70-100); MAGNESIUM LEVEL 1.8 MG/DL (1.8-2.4); NT-PRO BNP 3362 PG/ML (<450); POTASSIUM SERUM 3.2 MEQ/L (3.5-5.1); SODIUM LEVEL 139 MEQ/L (136-145)
[2017-12-21] MEDS: TIOTROPIUM INHALER/CAPSULE (SPIRIVA) INH (07:54)
[2017-12-21] MEDS: ADVAIR HFA 115/21MCG INHALER INH ×2 (07:55→20:45)
[2017-12-21] MEDS ORDERED: TORSEMIDE 10 MG TABLET PO (09:00)
[2017-12-21] MEDS: CitaloPRAM (CeleXA) 20 MG TAB PO (09:45)
[2017-12-21] MEDS: POTASSIUM CHLORIDE 10 MEQ SR TABLET PO (09:45)
[2017-12-21] MEDS: predniSONE 20 MG TAB PO (09:46)
[2017-12-21] MEDS: VERAPAMIL 80 MG TAB PO ×3 (09:46→21:00)
[2017-12-21] MEDS: FUROSEMIDE 100 MG/10 ML VIAL (J1940) IV ×2 (09:47→17:29)
[2017-12-21] MEDS: KCL 10MEQ/100ML SWI (KRUN) 10 MEQ in APPROPRIATE DILUENT 1 EA IV ×4 (10:00→15:04)
[2017-12-21] MEDS ORDERED: KCL 10MEQ IN STERILE WATER 100ML As Ordered (15:00)
[2017-12-21] MEDS: ATORVASTATIN 20 MG TAB PO (20:55)
[2017-12-21] MEDS: VERAPAMIL 40 MG TAB PO (22:54)
[2017-12-22] MEDS: FUROSEMIDE 100 MG/10 ML VIAL (J1940) IV ×3 (00:58→16:00)
[2017-12-22 05:29] LABS: HEMOGLOBIN 14.5 g/dl (12.0-15.5); MEAN CORPUSCULAR HEMOGLOBIN 31.1 pg (27.0-33.0); MEAN CORPUSCULAR VOLUME 94.4 fl (80.0-96.0); PLATELET COUNT, AUTOMATED 200 10^3/uL (150-450); RED BLOOD COUNT 4.66 10^6/uL (4.00-5.40); RED CELL DISTRIBUTION WIDTH 14.9 % (11.5-14.5); WHITE BLOOD COUNT 12.3 10^3/uL (4.0-10.0)
[2017-12-22 05:49] LABS: ANION GAP 4 MEQ/L (8-16); BLOOD UREA NITROGEN 26 MG/DL (7-18); CARBON DIOXIDE LEVEL 39 MEQ/L (21-32); CHLORIDE LEVEL 98 MEQ/L (98-107); CREATININE FOR GFR 0.86 MG/DL (0.55-1.30); GLOMERULAR FILTRATION RATE > 60.0 (>39); GLUCOSE, FASTING 98 MG/DL (70-100); NT-PRO BNP 2750 PG/ML (<450); POTASSIUM SERUM 3.4 MEQ/L (3.5-5.1); SODIUM LEVEL 141 MEQ/L (136-145)
[2017-12-22] MEDS: SLF 3 ML SYR IV ×3 (06:00→21:43)
[2017-12-22] MEDS: ADVAIR HFA 115/21MCG INHALER INH ×2 (07:32→19:56)
[2017-12-22] MEDS: TIOTROPIUM INHALER/CAPSULE (SPIRIVA) INH (07:32)
[2017-12-22] MEDS: BISACODYL 10 MG SUPP PR (09:28)
[2017-12-22] MEDS: CitaloPRAM (CeleXA) 20 MG TAB PO (09:28)
[2017-12-22] MEDS: DIGOXIN 0.125 MG TAB PO (09:28)
[2017-12-22] MEDS: DOCUSATE SODIUM 100 MG CAP PO ×2 (09:28→21:43)
[2017-12-22] MEDS: predniSONE 20 MG TAB PO (09:28)
[2017-12-22] MEDS: VERAPAMIL 80 MG TAB PO ×3 (09:50→21:43)
[2017-12-22] MEDS: ATORVASTATIN 20 MG TAB PO (21:42)
[2017-12-23] MEDS: FUROSEMIDE 100 MG/10 ML VIAL (J1940) IV ×3 (00:10→16:00)
[2017-12-23] MEDS: SLF 3 ML SYR IV ×3 (05:25→21:08)
[2017-12-23 05:32] LABS: HEMATOCRIT 44.9 % (36.0-47.0); HEMOGLOBIN 14.9 g/dl (12.0-15.5); MEAN CORPUSCULAR HEMOGLOBIN 31.2 pg (27.0-33.0); MEAN CORPUSCULAR HGB CONC 33.2 g/dl (32.0-36.5); MEAN CORPUSCULAR VOLUME 93.9 fl (80.0-96.0); PLATELET COUNT, AUTOMATED 204 10^3/uL (150-450); RED BLOOD COUNT 4.78 10^6/uL (4.00-5.40); RED CELL DISTRIBUTION WIDTH 14.8 % (11.5-14.5); WHITE BLOOD COUNT 14.7 10^3/uL (4.0-10.0)
[2017-12-23 05:57] LABS: ANION GAP 6 MEQ/L (8-16); BLOOD UREA NITROGEN 25 MG/DL (7-18); CALCIUM LEVEL 8.7 MG/DL (8.8-10.2); CARBON DIOXIDE LEVEL 39 MEQ/L (21-32); CHLORIDE LEVEL 96 MEQ/L (98-107); CREATININE FOR GFR 0.77 MG/DL (0.55-1.30); GLOMERULAR FILTRATION RATE > 60.0 (>39); GLUCOSE, FASTING 101 MG/DL (70-100); MAGNESIUM LEVEL 2.1 MG/DL (1.8-2.4); NT-PRO BNP 3825 PG/ML (<450); POTASSIUM SERUM 3.2 MEQ/L (3.5-5.1); SODIUM LEVEL 141 MEQ/L (136-145)
[2017-12-23] MEDS: ADVAIR HFA 115/21MCG INHALER INH ×2 (07:28→21:41)
[2017-12-23] MEDS: TIOTROPIUM INHALER/CAPSULE (SPIRIVA) INH (07:28)
[2017-12-23] MEDS: DOCUSATE SODIUM 100 MG CAP PO ×2 (09:53→21:07)
[2017-12-23] MEDS: POTASSIUM CHLORIDE 10 MEQ SR TABLET PO (09:53)
[2017-12-23] MEDS: VERAPAMIL 80 MG TAB PO ×3 (09:54→21:07)
[2017-12-23] MEDS: CitaloPRAM (CeleXA) 20 MG TAB PO (09:55)
[2017-12-23] MEDS: predniSONE 20 MG TAB PO (09:55)
[2017-12-23] MEDS: ATORVASTATIN 20 MG TAB PO (21:06)
[2017-12-23] MEDS: ALPRAZolam 0.25 MG TAB PO (21:15)
[2017-12-24] MEDS: FUROSEMIDE 100 MG/10 ML VIAL (J1940) IV ×2 (00:26→08:27)
[2017-12-24] MEDS: SLF 3 ML SYR IV ×3 (05:53→21:03)
[2017-12-24 06:02] LABS: HEMATOCRIT 45.5 % (36.0-47.0); HEMOGLOBIN 14.8 g/dl (12.0-15.5); MEAN CORPUSCULAR HEMOGLOBIN 31.2 pg (27.0-33.0); MEAN CORPUSCULAR HGB CONC 32.5 g/dl (32.0-36.5); PLATELET COUNT, AUTOMATED 225 10^3/uL (150-450); RED BLOOD COUNT 4.74 10^6/uL (4.00-5.40); RED CELL DISTRIBUTION WIDTH 14.6 % (11.5-14.5); WHITE BLOOD COUNT 13.7 10^3/uL (4.0-10.0)
[2017-12-24 06:24] LABS: ANION GAP 4 MEQ/L (8-16); BLOOD UREA NITROGEN 31 MG/DL (7-18); CARBON DIOXIDE LEVEL 42 MEQ/L (21-32); CHLORIDE LEVEL 96 MEQ/L (98-107); CREATININE FOR GFR 0.99 MG/DL (0.55-1.30); GLOMERULAR FILTRATION RATE 57.9 (>39); GLUCOSE, FASTING 108 MG/DL (70-100); MAGNESIUM LEVEL 1.9 MG/DL (1.8-2.4); POTASSIUM SERUM 3.6 MEQ/L (3.5-5.1); SODIUM LEVEL 142 MEQ/L (136-145)
[2017-12-24] MEDS: TIOTROPIUM INHALER/CAPSULE (SPIRIVA) INH (07:17)
[2017-12-24] MEDS: ADVAIR HFA 115/21MCG INHALER INH ×2 (07:17→21:20)
[2017-12-24] MEDS: predniSONE 20 MG TAB PO (08:27)
[2017-12-24] MEDS: VERAPAMIL 80 MG TAB PO ×3 (08:27→21:02)
[2017-12-24] MEDS: CitaloPRAM (CeleXA) 20 MG TAB PO (08:27)
[2017-12-24] MEDS: DOCUSATE SODIUM 100 MG CAP PO ×2 (08:27→21:00)
[2017-12-24] MEDS: DIGOXIN 0.125 MG TAB PO (08:28)
[2017-12-24] MEDS: FUROSEMIDE 20 MG TAB PO (17:43)
[2017-12-24] MEDS: ALPRAZolam 0.25 MG TAB PO (21:00)
[2017-12-24] MEDS: ATORVASTATIN 20 MG TAB PO (21:00)
[2017-12-25] MEDS: SLF 3 ML SYR IV ×3 (05:40→21:11)
[2017-12-25] MEDS: CitaloPRAM (CeleXA) 20 MG TAB PO (07:50)
[2017-12-25] MEDS: DOCUSATE SODIUM 100 MG CAP PO ×2 (07:50→21:10)
[2017-12-25] MEDS: FUROSEMIDE 20 MG TAB PO ×2 (07:50→16:23)
[2017-12-25] MEDS: VERAPAMIL 80 MG TAB PO ×3 (07:51→21:10)
[2017-12-25] MEDS: predniSONE 20 MG TAB PO (07:51)
[2017-12-25 08:18] LABS: BASO # 0.1 10^3/uL (0.0-0.2); BASO % 0.2 % (0.0-1.0); EOS % 0.1 % (0.0-3.0); HEMOGLOBIN 16.5 g/dl (12.0-15.5); LYMPH % 4.7 % (24.0-44.0); MEAN CORPUSCULAR HEMOGLOBIN 31.5 pg (27.0-33.0); MEAN CORPUSCULAR VOLUME 95.4 fl (80.0-96.0); MONO # 1.9 10^3/uL (0.0-0.8); MONO % 9.3 % (0.0-5.0); NEUTROPHILS # 17.7 10^3/uL (1.8-7.7); NEUTROPHILS % 84.7 % (36.0-66.0); PLATELET COUNT, AUTOMATED 240 10^3/uL (150-450); RED BLOOD COUNT 5.24 10^6/uL (4.00-5.40); RED CELL DISTRIBUTION WIDTH 14.6 % (11.5-14.5); WHITE BLOOD COUNT 20.9 10^3/uL (4.0-10.0)
[2017-12-25 08:56] LABS: ALBUMIN 2.7 GM/DL (3.2-5.2); ALBUMIN/GLOBULIN RATIO 0.96 (1.00-1.93); ALKALINE PHOSPHATASE 110 U/L (45-117); ALT/SGPT 43 U/L (12-78); ANION GAP 8 MEQ/L (8-16); AST/SGOT 21 U/L (7-37); BILIRUBIN,TOTAL 1.6 MG/DL (0.2-1.0); BLOOD UREA NITROGEN 28 MG/DL (7-18); CALCIUM LEVEL 9.5 MG/DL (8.8-10.2); CARBON DIOXIDE LEVEL 36 MEQ/L (21-32); CHLORIDE LEVEL 96 MEQ/L (98-107); CREATININE FOR GFR 0.85 MG/DL (0.55-1.30); GLOMERULAR FILTRATION RATE > 60.0 (>39); GLUCOSE, FASTING 95 MG/DL (70-100); POTASSIUM SERUM 3.3 MEQ/L (3.5-5.1); SODIUM LEVEL 140 MEQ/L (136-145); TOTAL PROTEIN 5.5 GM/DL (6.4-8.2)
[2017-12-25] MEDS: ADVAIR HFA 115/21MCG INHALER INH ×2 (09:25→20:51)
[2017-12-25] MEDS: TIOTROPIUM INHALER/CAPSULE (SPIRIVA) INH (09:25)
[2017-12-25 09:44] LABS: MAGNESIUM LEVEL 1.9 MG/DL (1.8-2.4)
[2017-12-25] MEDS: POTASSIUM CHLORIDE 10 MEQ SR TABLET PO (12:21)
[2017-12-25 20:43] LABS: BEDSIDE GLUCOSE 140 MG/DL (83-110)
[2017-12-25] MEDS: ATORVASTATIN 20 MG TAB PO (21:10)
[2017-12-25] MEDS: ACETAMINOPHEN TAB 650MG DOSE (2X325MG) PO (23:43)
[2017-12-26] MEDS: DIGOXIN 0.125 MG TAB PO (05:01)
[2017-12-26] MEDS: SLF 3 ML SYR IV ×3 (06:16→20:09)
[2017-12-26 06:27] LABS: HEMATOCRIT 46.3 % (36.0-47.0); HEMOGLOBIN 15.5 g/dl (12.0-15.5); MEAN CORPUSCULAR HEMOGLOBIN 31.7 pg (27.0-33.0); MEAN CORPUSCULAR HGB CONC 33.5 g/dl (32.0-36.5); MEAN CORPUSCULAR VOLUME 94.7 fl (80.0-96.0); PLATELET COUNT, AUTOMATED 236 10^3/uL (150-450); RED BLOOD COUNT 4.89 10^6/uL (4.00-5.40); RED CELL DISTRIBUTION WIDTH 14.8 % (11.5-14.5); WHITE BLOOD COUNT 27.6 10^3/uL (4.0-10.0)
[2017-12-26 06:46] LABS: ANION GAP 5 MEQ/L (8-16); BLOOD UREA NITROGEN 29 MG/DL (7-18); CALCIUM LEVEL 9.6 MG/DL (8.8-10.2); CARBON DIOXIDE LEVEL 38 MEQ/L (21-32); CHLORIDE LEVEL 94 MEQ/L (98-107); CREATININE FOR GFR 1.07 MG/DL (0.55-1.30); GLOMERULAR FILTRATION RATE 52.9 (>39); GLUCOSE, FASTING 116 MG/DL (70-100); POTASSIUM SERUM 3.6 MEQ/L (3.5-5.1); SODIUM LEVEL 137 MEQ/L (136-145)
[2017-12-26] MEDS: TIOTROPIUM INHALER/CAPSULE (SPIRIVA) INH (07:23)
[2017-12-26] MEDS: ADVAIR HFA 115/21MCG INHALER INH ×2 (07:24→19:53)
[2017-12-26] MEDS: FUROSEMIDE 20 MG TAB PO ×2 (07:57→16:44)
[2017-12-26] MEDS: MAALOX 30 ML SUSP *UDC PO (07:57)
[2017-12-26] MEDS: ALPRAZolam 0.25 MG TAB PO (07:58)
[2017-12-26] MEDS: CitaloPRAM (CeleXA) 20 MG TAB PO (07:58)
[2017-12-26] MEDS: VERAPAMIL 80 MG TAB PO ×3 (07:58→20:09)
[2017-12-26] MEDS: DOCUSATE SODIUM 100 MG CAP PO ×2 (07:59→20:09)
[2017-12-26] MEDS: predniSONE 20 MG TAB PO (07:59)
[2017-12-26] MEDS: BISACODYL 5 MG TAB PO (11:32)
[2017-12-26] MEDS: ATORVASTATIN 20 MG TAB PO (20:09)
[2017-12-27] MEDS: ACETAMINOPHEN TAB 650MG DOSE (2X325MG) PO ×2 (00:20→20:58)
[2017-12-27] MEDS: SLF 3 ML SYR IV ×3 (04:23→20:59)
[2017-12-27 05:18] LABS: HEMATOCRIT 46.4 % (36.0-47.0); HEMOGLOBIN 15.4 g/dl (12.0-15.5); MEAN CORPUSCULAR HEMOGLOBIN 31.6 pg (27.0-33.0); MEAN CORPUSCULAR HGB CONC 33.2 g/dl (32.0-36.5); MEAN CORPUSCULAR VOLUME 95.3 fl (80.0-96.0); PLATELET COUNT, AUTOMATED 206 10^3/uL (150-450); RED BLOOD COUNT 4.87 10^6/uL (4.00-5.40); RED CELL DISTRIBUTION WIDTH 14.8 % (11.5-14.5); WHITE BLOOD COUNT 23.7 10^3/uL (4.0-10.0)
[2017-12-27 05:34] LABS: ANION GAP 5 MEQ/L (8-16); BLOOD UREA NITROGEN 29 MG/DL (7-18); CALCIUM LEVEL 9.8 MG/DL (8.8-10.2); CARBON DIOXIDE LEVEL 36 MEQ/L (21-32); CHLORIDE LEVEL 95 MEQ/L (98-107); CREATININE FOR GFR 0.93 MG/DL (0.55-1.30); GLOMERULAR FILTRATION RATE > 60.0 (>39); GLUCOSE, FASTING 115 MG/DL (70-100); POTASSIUM SERUM 3.7 MEQ/L (3.5-5.1); SODIUM LEVEL 136 MEQ/L (136-145)
[2017-12-27] MEDS: DIGOXIN INJ 0.5 MG/2 ML AMP (J1160) IV (05:49)
[2017-12-27] MEDS: TIOTROPIUM INHALER/CAPSULE (SPIRIVA) INH (07:20)
[2017-12-27] MEDS: ADVAIR HFA 115/21MCG INHALER INH ×2 (07:20→21:25)
[2017-12-27] MEDS: CitaloPRAM (CeleXA) 20 MG TAB PO (08:45)
[2017-12-27] MEDS: ALPRAZolam 0.25 MG TAB PO (08:45)
[2017-12-27] MEDS: predniSONE 20 MG TAB PO (08:45)
[2017-12-27] MEDS: DOCUSATE SODIUM 100 MG CAP PO ×2 (08:45→20:59)
[2017-12-27] MEDS: FUROSEMIDE 20 MG TAB PO ×2 (08:46→16:44)
[2017-12-27] MEDS: VERAPAMIL 80 MG TAB PO ×3 (08:46→20:59)
[2017-12-27] MEDS: BISACODYL 5 MG TAB PO (08:46)
[2017-12-27] MEDS: DIGOXIN 0.125 MG TAB PO (08:47)
[2017-12-27] MEDS ORDERED: DIGOXIN INJ 0.5 MG/2 ML AMP (J1160) IV (09:00)
[2017-12-27] MEDS: LEVALBUTEROL 1.25 MG/0.5 ML CONCENTRATE NEB NEB (12:04)
[2017-12-27] MEDS: ATORVASTATIN 20 MG TAB PO (20:59)
[2017-12-28] MEDS: SLF 3 ML SYR IV ×3 (04:16→21:25)
[2017-12-28 05:45] LABS: HEMATOCRIT 43.5 % (36.0-47.0); HEMOGLOBIN 14.5 g/dl (12.0-15.5); MEAN CORPUSCULAR HGB CONC 33.3 g/dl (32.0-36.5); MEAN CORPUSCULAR VOLUME 93.1 fl (80.0-96.0); PLATELET COUNT, AUTOMATED 212 10^3/uL (150-450); RED BLOOD COUNT 4.67 10^6/uL (4.00-5.40); RED CELL DISTRIBUTION WIDTH 14.8 % (11.5-14.5); WHITE BLOOD COUNT 19.4 10^3/uL (4.0-10.0)
[2017-12-28 06:03] LABS: ANION GAP 8 MEQ/L (8-16); BLOOD UREA NITROGEN 32 MG/DL (7-18); CALCIUM LEVEL 9.4 MG/DL (8.8-10.2); CARBON DIOXIDE LEVEL 36 MEQ/L (21-32); CHLORIDE LEVEL 95 MEQ/L (98-107); CREATININE FOR GFR 0.91 MG/DL (0.55-1.30); GLOMERULAR FILTRATION RATE > 60.0 (>39); GLUCOSE, FASTING 108 MG/DL (70-100); POTASSIUM SERUM 3.6 MEQ/L (3.5-5.1); SODIUM LEVEL 139 MEQ/L (136-145)
[2017-12-28] MEDS: TIOTROPIUM INHALER/CAPSULE (SPIRIVA) INH (07:55)
[2017-12-28] MEDS: ADVAIR HFA 115/21MCG INHALER INH ×2 (07:55→20:20)
[2017-12-28] MEDS: CitaloPRAM (CeleXA) 20 MG TAB PO (09:28)
[2017-12-28] MEDS: VERAPAMIL 80 MG TAB PO ×3 (09:28→21:25)
[2017-12-28] MEDS: FUROSEMIDE 20 MG TAB PO ×2 (09:28→16:47)
[2017-12-28] MEDS: BISACODYL 5 MG TAB PO (09:29)
[2017-12-28] MEDS: DOCUSATE SODIUM 100 MG CAP PO ×2 (09:29→21:24)
[2017-12-28] MEDS: predniSONE 20 MG TAB PO (09:29)
[2017-12-28] MEDS: ACETAMINOPHEN TAB 650MG DOSE (2X325MG) PO (09:29)
[2017-12-28] MEDS: DIGOXIN 0.125 MG TAB PO (09:29)
[2017-12-28] MEDS: DIGOXIN INJ 0.5 MG/2 ML AMP (J1160) IV (12:25)
[2017-12-28] MEDS: ALPRAZolam 0.25 MG TAB PO (16:53)
[2017-12-28] MEDS: ATORVASTATIN 20 MG TAB PO (21:24)
[2017-12-29 05:15] LABS: HEMATOCRIT 43.3 % (36.0-47.0); HEMOGLOBIN 14.5 g/dl (12.0-15.5); MEAN CORPUSCULAR HEMOGLOBIN 31.2 pg (27.0-33.0); MEAN CORPUSCULAR HGB CONC 33.5 g/dl (32.0-36.5); MEAN CORPUSCULAR VOLUME 93.1 fl (80.0-96.0); PLATELET COUNT, AUTOMATED 242 10^3/uL (150-450); RED BLOOD COUNT 4.65 10^6/uL (4.00-5.40); RED CELL DISTRIBUTION WIDTH 14.6 % (11.5-14.5); WHITE BLOOD COUNT 15.6 10^3/uL (4.0-10.0)
[2017-12-29] MEDS: SLF 3 ML SYR IV ×3 (05:21→20:04)
[2017-12-29 05:34] LABS: ANION GAP 5 MEQ/L (8-16); BLOOD UREA NITROGEN 35 MG/DL (7-18); CALCIUM LEVEL 9.4 MG/DL (8.8-10.2); CARBON DIOXIDE LEVEL 36 MEQ/L (21-32); CHLORIDE LEVEL 96 MEQ/L (98-107); GLOMERULAR FILTRATION RATE > 60.0 (>39); GLUCOSE, FASTING 93 MG/DL (70-100); POTASSIUM SERUM 3.6 MEQ/L (3.5-5.1); SODIUM LEVEL 137 MEQ/L (136-145)
[2017-12-29] MEDS: TIOTROPIUM INHALER/CAPSULE (SPIRIVA) INH (07:56)
[2017-12-29] MEDS: ADVAIR HFA 115/21MCG INHALER INH ×3 (07:56→22:46)
[2017-12-29] MEDS: VERAPAMIL 80 MG TAB PO ×3 (08:37→20:03)
[2017-12-29] MEDS: CitaloPRAM (CeleXA) 20 MG TAB PO (08:37)
[2017-12-29] MEDS: DOCUSATE SODIUM 100 MG CAP PO ×3 (08:37→20:25)
[2017-12-29] MEDS: BISACODYL 5 MG TAB PO (08:37)
[2017-12-29] MEDS: predniSONE 20 MG TAB PO (08:37)
[2017-12-29] MEDS: DIGOXIN 0.125 MG TAB PO (08:37)
[2017-12-29] MEDS: FUROSEMIDE 20 MG TAB PO ×2 (08:38→16:10)
[2017-12-29] MEDS: ATORVASTATIN 20 MG TAB PO (20:03)
[2017-12-30] MEDS: SLF 3 ML SYR IV ×3 (05:26→22:00)
[2017-12-30 05:59] LABS: HEMATOCRIT 44.8 % (36.0-47.0); HEMOGLOBIN 14.7 g/dl (12.0-15.5); MEAN CORPUSCULAR HEMOGLOBIN 31.1 pg (27.0-33.0); MEAN CORPUSCULAR HGB CONC 32.8 g/dl (32.0-36.5); MEAN CORPUSCULAR VOLUME 94.9 fl (80.0-96.0); PLATELET COUNT, AUTOMATED 250 10^3/uL (150-450); RED BLOOD COUNT 4.72 10^6/uL (4.00-5.40); RED CELL DISTRIBUTION WIDTH 14.6 % (11.5-14.5); WHITE BLOOD COUNT 17.7 10^3/uL (4.0-10.0)
[2017-12-30 06:10] LABS: ANION GAP 5 MEQ/L (8-16); BLOOD UREA NITROGEN 34 MG/DL (7-18); CALCIUM LEVEL 9.1 MG/DL (8.8-10.2); CARBON DIOXIDE LEVEL 37 MEQ/L (21-32); CHLORIDE LEVEL 96 MEQ/L (98-107); CREATININE FOR GFR 0.87 MG/DL (0.55-1.30); GLOMERULAR FILTRATION RATE > 60.0 (>39); GLUCOSE, FASTING 96 MG/DL (70-100); POTASSIUM SERUM 3.7 MEQ/L (3.5-5.1); SODIUM LEVEL 138 MEQ/L (136-145)
[2017-12-30] MEDS: predniSONE 20 MG TAB PO (08:16)
[2017-12-30] MEDS: DOCUSATE SODIUM 100 MG CAP PO ×2 (08:16→20:29)
[2017-12-30] MEDS: BISACODYL 5 MG TAB PO (08:16)
[2017-12-30] MEDS: VERAPAMIL 80 MG TAB PO ×3 (08:18→20:29)
[2017-12-30] MEDS: FUROSEMIDE 20 MG TAB PO ×2 (08:18→16:35)
[2017-12-30] MEDS: DIGOXIN 0.125 MG TAB PO (08:18)
[2017-12-30] MEDS: ALPRAZolam 0.25 MG TAB PO ×2 (08:18→20:30)
[2017-12-30] MEDS: CitaloPRAM (CeleXA) 20 MG TAB PO (08:18)
[2017-12-30] MEDS: TIOTROPIUM INHALER/CAPSULE (SPIRIVA) INH (08:25)
[2017-12-30] MEDS: ADVAIR HFA 115/21MCG INHALER INH ×2 (08:26→21:00)
[2017-12-30] MEDS ORDERED: SCOPOLAMINE 1MG TRANSDERMAL PATCH TOP (16:15)
[2017-12-30] MEDS: ATORVASTATIN 20 MG TAB PO (20:29)
[2017-12-30] MEDS: LEVALBUTEROL 1.25 MG/0.5 ML CONCENTRATE NEB NEB (21:24)
[2017-12-31] MEDS: LORazepam 1 MG TAB PO (05:20)
[2017-12-31] MEDS: SLF 3 ML SYR IV (06:00)
[2017-12-31] MEDS: DOCUSATE SODIUM 100 MG CAP PO ×2 (09:11→22:02)
[2017-12-31] MEDS: FUROSEMIDE 20 MG TAB PO ×2 (09:11→16:47)
[2017-12-31] MEDS: predniSONE 20 MG TAB PO (09:11)
[2017-12-31] MEDS: BISACODYL 5 MG TAB PO (09:11)
[2017-12-31] MEDS: CitaloPRAM (CeleXA) 20 MG TAB PO (09:12)
[2017-12-31] MEDS: VERAPAMIL 80 MG TAB PO ×3 (09:29→22:02)
[2017-12-31] MEDS: DIGOXIN 0.125 MG TAB PO (09:32)
[2017-12-31] MEDS: TIOTROPIUM INHALER/CAPSULE (SPIRIVA) INH (10:58)
[2017-12-31] MEDS: ADVAIR HFA 115/21MCG INHALER INH ×2 (10:59→22:20)
[2017-12-31] MEDS: NYSTATIN 500,000 U/5 ML SUSP UDC SS ×2 (14:09→18:18)
[2017-12-31] MEDS: MORPHINE 10MG/0.5ML ORAL CONCENTRATE SOLUTION U/D SL (15:46)
[2017-12-31] MEDS: ATORVASTATIN 20 MG TAB PO (22:02)
[2018-01-01] MEDS: NYSTATIN 500,000 U/5 ML SUSP UDC SS ×2 (00:19→05:13)
[2018-01-01] MEDS: ACETAMINOPHEN TAB 650MG DOSE (2X325MG) PO (07:16)
[2018-01-01] MEDS: ADVAIR HFA 115/21MCG INHALER INH (07:46)
[2018-01-01] MEDS: TIOTROPIUM INHALER/CAPSULE (SPIRIVA) INH (07:46)
[2018-01-01] MEDS: predniSONE 20 MG TAB PO (08:28)
[2018-01-01] MEDS: BISACODYL 5 MG TAB PO ×2 (08:28→08:33)
[2018-01-01] MEDS: DOCUSATE SODIUM 100 MG CAP PO (08:28)
[2018-01-01] MEDS: CitaloPRAM (CeleXA) 20 MG TAB PO (08:29)
[2018-01-01] MEDS: DIGOXIN 0.125 MG TAB PO (08:29)
[2018-01-01] MEDS: FUROSEMIDE 20 MG TAB PO (08:29)
[2018-01-01] MEDS: VERAPAMIL 80 MG TAB PO (10:18)
[2018-01-01] MEDS: ALPRAZolam 0.25 MG TAB PO (10:53)
[2018-01-01] MEDS: MORPHINE 10MG/0.5ML ORAL CONCENTRATE SOLUTION U/D SL (12:36)
== END 2018-01-01 12:40 | disposition home or self-care (01) | DRG 308 ==
LOC: M MSPAV 12-31 18:49 → M ED 11:20 → M ED INP 20:07 → M PCU 23:17
PROC: 5A2204Z Restoration of Cardiac Rhythm, Single (ICD-10-PCS; principal; 2017-12-10 14:50)
PROC: B246ZZ4 Ultrasonography of Right and Left Heart, Transesophageal (ICD-10-PCS; 2017-12-10 14:50)
DX: I48.4 Atypical atrial flutter (principal); I50.33 Acute on chronic diastolic (congestive) heart failure; J96.00 Acute respiratory failure, unspecified whether with hypoxia or hypercapnia; N17.9 Acute kidney failure, unspecified; E87.2 Acidosis; K91.870 Postprocedural hematoma of a digestive system organ or structure following a digestive system procedure; C96.6 Unifocal Langerhans-cell histiocytosis; Z66 Do not resuscitate; Z51.5 Encounter for palliative care; T48.6X5A Adverse effect of antiasthmatics, initial encounter; I27.20 Pulmonary hypertension, unspecified; J47.9 Bronchiectasis, uncomplicated; F32.9 Major depressive disorder, single episode, unspecified; K59.00 Constipation, unspecified; D72.829 Elevated white blood cell count, unspecified; E87.6 Hypokalemia; I27.81 Cor pulmonale (chronic); E02 Subclinical iodine-deficiency hypothyroidism; I50.812 Chronic right heart failure; I11.0 Hypertensive heart disease with heart failure; H35.30 Unspecified macular degeneration; E78.00 Pure hypercholesterolemia, unspecified; J43.9 Emphysema, unspecified; J84.10 Pulmonary fibrosis, unspecified; E21.0 Primary hyperparathyroidism; Z79.82 Long term (current) use of aspirin; Z79.52 Long term (current) use of systemic steroids; Z79.899 Other long term (current) drug therapy; Z98.41 Cataract extraction status, right eye; Z98.42 Cataract extraction status, left eye; Z87.891 Personal history of nicotine dependence; Z99.81 Dependence on supplemental oxygen; Z96.643 Presence of artificial hip joint, bilateral